=== PATIENT | female | born 1950 | race Caucasian/White ===

== ENCOUNTER 2019-04-12 18:01 | Inpatient (IN) | payer MEDICARE ==
[~2019-04-12 18:01] MED LIST: Iopamidol-370 76% 500 ML 1 ML ONE
[2019-04-12] MEDS ORDERED: Morphine 4 MG/ML VIAL ONE ×2 (18:20→21:51)
[2019-04-12] MEDS ORDERED: Ondansetron PF 4 MG/2 ML Vial ONE (18:20)
--- NOTE | 2019-04-12 18:30 | RAD ---
Chest AP view INDICATION: History of syncope COMPARISON: None FINDINGS: Lungs:There is a 5.6 cm right suprahilar mass which may reflect aneurysmal dilatation of the ascendin g aorta or possibly prominent lymphadenopathy or a hilar malignancy. There is some moderate COPD change. Cardiac silhouette:There is mild cardiomegaly. There are vascular calcifications of the aortic arch. Pulmonary vasculature:Normal Pleural spaces:No pleural effusion or pneumothorax is demonstrated. Upper abdomen:No abnormality seen. Osseous structures: No acute osseous abnormality. There is healed fracture deformity involving the pr oximal left humerus. There is diffuse osteopenia. There is scattered degenerative and osteoarthritic change present. Additional findings:None. IMPRESSION: Right suprahilar mass possibly related to an aneurysm, lymphadenopathy or hilar malignanc y. Recommend CT of the thorax with IV contrast for additional characterization. Moderate COPD change, mild cardiomegaly and healed deformity of the proximal left humerus.
--- NOTE | 2019-04-12 18:33 | RAD ---
XR Hip Rt 2-3 View INDICATION: Fall with right hip pain COMPARISON: None FINDINGS: Bones: There is a varus angulated, moderately displaced right hip intertrochanteric fracture. The fra cture is obliquely oriented and extends through the right inferior intertrochanteric region and exits just proximal to the origin of the lesser trochanter. The proximal fracture fragment is abducte d likely from the gluteal musculature pulling the fragment laterally and superiorly. There is diffuse osteopenia. No additional fractures evident. Hip joint: There is mild right hip osteoarthrosis. SI joints and symphysis pubis: Radiographically normal. Intrapelvic contents: Visualized bowel gas pattern is within normal limits. Surrounding soft tissues: Radiographically normal. IMPRESSION: 1. Moderately displaced right hip intertrochanteric fracture.
--- NOTE | 2019-04-12 18:34 | RAD ---
AP view of the pelvis INDICATION: Fall COMPARISON: None. FINDINGS: Bones: There is a comminuted right hip intertrochanteric fracture. There is diffuse osteopenia. No ad ditional fracture is evident. Hips: There is mild osteoarthrosis of both hips. SI joints and symphysis pubis: Normal appearing. Intrapelvic contents: Within normal limits. IMPRESSION: Comminuted, angulated right hip intertrochanteric fracture.
[2019-04-12 18:47] LABS: #Lymphocytes 0.8 thou/uL (1.20-3.40); #Monocytes 0.8 thou/uL (0.11-0.59); %Basophils 0.1 % (0.0-1.0); %Eosinophils 0.2 % (0.0-10.0); %Lymphocytes 5.9 % (21.0-51.0); %Monocytes 5.9 % (0.0-10.0); %Neutrophils 87.9 % (42.0-75.0); Mean Corpuscular Hemoglobin 35.4 pg (27.0-31.0); Mean Corpuscular Volume 98.3 fL (78.0-98.0); Mean Platelet Volume 6.4 fL (7.4-10.4); Platelet Count 277 thou/uL (130-400); RBC Distribution Width 11.8 % (11.5-14.5); Red Blood Cell (RBC) Count 3.67 mill/uL (4.20-5.40); White Blood Cell (WBC) Count 13.6 thou/uL (4.8-10.8)
[2019-04-12 18:56] LABS: INR-International Normal Ratio 1.2; Prothrombin Time 15.1 SEC (12.0-14.7)
[2019-04-12 18:57] LABS: PTT 28.5 SEC (22.9-36.1)
--- NOTE | 2019-04-12 19:04 | CT ---
CTA OF THE CHEST AND ABDOMEN UTILIZING AN AORTIC DISSECTION PROTOCOL AND 3-D REFORMATTED IMAGING INDICATION: 68-year-old female with possible aneurysm or hilar mass COMPARISON: Chest radiograph dated April 12, 2019 FINDINGS: Aorta: No acute aortic stenosis, occlusion or aneurysmal formation demonstrated. There are mild vascu lar calcifications seen involving the visualized vasculature. Central pulmonary artery: No central pulmonary embolus demonstrated. Additional thorax findings: There is a large 7.8 x 6.4 cm mass involving the right suprahilar region with invasion into the right upper lobe bronchus with circumferential narrowing involving the right mainstem bronchus and SVC. There is suspected mucous debris seen at the level of the noy. There is an enlarged right supraclavicular lymph node measuring 1.2 cm. There are pleural-based metastatic lesions in the right hemithorax. When the largest seen within the posterior right hemithorax measures 3 4 4 cm. An additional lesion is seen within posterior right hemithorax measuring 1.5 cm. There is an enlarged anterior mediastinal lymph node measuring 3.7 x 2.2 cm. There is a small right pleural effusion. Additional abdominal findings: Multiple hepatic metastatic lesions. The largest is seen within left h epatic lobe measuring 5.1 cm. There is a 1.5 cm right adrenal metastatic lesion. There is a 1.1 cm left adrenal metastatic lesion. There are enlarged lymph nodes within the peripancreatic and portacav al regions consistent with malignant lymphadenopathy. When the largest measures 1.8 cm. Osseous structures: There are age-indeterminate compression abnormalities involving T3, T4, T6-L4. Th ere is healed fracture deformity involving the distal sternal body. There is diffuse osteopenia. There is scattered degenerative and osteoarthritic change present. IMPRESSION: 1. Large right suprahilar mass invading the right aspect of the mediastinum extending up into the sup erior right paratracheal region and surrounding the SVC. The lesion also invades the right upper lobe bronchus completely obstructing the right upper lobe bronchus. There is circumferential involvem ent of the lesion with a right mainstem bronchus. There is malignant lymphadenopathy within the right subclavicular region and anterior mediastinum. There is metastatic lesions within the right ple ural space with a small right pleural effusion. There are multiple hepatic metastatic lesions and bilateral adrenal metastatic lesions. There is malignant lymphadenopathy of the upper abdomen. 2. No acute aortic stenosis, occlusion or aneurysmal formation. 3. Numerous age-indeterminate thoracolumbar spinal compression abnormalities.
[2019-04-12 19:05] LABS: D-Dimer Test 4.25 *mcg/mL (0.27-0.43)
[2019-04-12 19:06] LABS: ALT (SGPT) 45 U/L (8-55); AST (SGOT) 39 U/L (5-34); Albumin 3.7 g/dL (3.4-4.8); Alkaline Phosphatase 96 U/L (40-110); Anion Gap 16 mmol/L (10-20); BUN (Urea Nitrogen) 9 mg/dL (9.8-20.1); Bilirubin, Total 0.9 mg/dL (0.2-1.2); CK (CPK) 136 U/L (29-168); Calc. Creatinine Clearance 0 mL/min (70-130); Calcium 8.4 mg/dL (7.8-10.44); Carbon Dioxide 28 mmol/L (23-31); Estimated GFR-MDRD Greater than 90; Globulin 1.9 g/dL (2.4-3.5); Glucose 124 mg/dL (80-115); Lipase 27 U/L (8-78); Potassium 3.1 mmol/L (3.5-5.1); Protein, Total 5.6 g/dL (6.0-8.3)
--- NOTE | 2019-04-12 19:07 | CT ---
CT Brain WO Con: 04/12/2019 6:16 PM CLINICAL HISTORY: Frequent falls. IMAGING TECHNIQUE: Multiple CT images were obtained of the brain without IV contrast. COMPARISON: CT the brain without contrast dated 2019 FINDINGS: Brain: Large left parietal lobe metastatic lesion measuring 2.4 cm a stable appearing. There is a 7 mm left occipital lesion which is similar appearing. The osteolytic lesion involving the right parietal skull with associated scalp soft tissue mass is stable. No midline shift is evident. No acut e intracranial hemorrhage or hydrocephalus is present. Ventricles: Normal. No hydrocephalus. Skull: As above Visualized Paranasal sinuses: Clear. Mastoid air cells:Clear. Extracranial soft tissues:Normal. IMPRESSION: Stable intracranial metastatic disease and right parietal skull metastatic lesion. No acute interval intracranial abnormality demonstrated.
[2019-04-12 19:10] LABS: Chloride 70 mmol/L (98-107); Sodium 111 mmol/L (136-145)
[2019-04-12 20:49] LABS: Bacteria/HPF 3+ HPF (None Seen); Bilirubin Negative (Negative); Blood, Urine Negative (Negative); Clarity Clear (Clear); Glucose, Urine (Dipstick) Normal (Negative); Leukocyte 75 Leu/uL (Negative); Nitrite Negative (Negative); Protein, Urine (Dipstick) 20 mg/dL (Neg-Trace); RBC/HPF 0-3 HPF (0-3); Squamous Epithelial 0-3 HPF (0-3); Urobilinogen Normal mg/dL (Less than 2)
[2019-04-12] MEDS ORDERED: Potassium Chloride 20 MEQ TAB PO SCH (21:15)
[2019-04-12 21:36] LABS: Anion Gap 15 mmol/L (10-20); BUN (Urea Nitrogen) 8 mg/dL (9.8-20.1); Calc. Creatinine Clearance 0 mL/min (70-130); Calcium 7.9 mg/dL (7.8-10.44); Carbon Dioxide 26 mmol/L (23-31); Estimated GFR-MDRD Greater than 90; Glucose 112 mg/dL (80-115)
[2019-04-12 21:41] LABS: Chloride 74 mmol/L (98-107); Sodium 112 mmol/L (136-145)
[2019-04-12] MEDS ORDERED: Potassium Chloride 20 MEQ TAB ONE (21:45)
[2019-04-12] MEDS ORDERED: Furosemide 40 MG/4 ML VIAL ONE (22:11)
[2019-04-12 22:26] LABS: Magnesium 1.7 mg/dL (1.6-2.6)
[2019-04-12] MEDS ORDERED: Magnesium Sulfate 2 GM in Sodium Chloride 0.9% 100 ML IVPB SCH (22:45)
[2019-04-12] MEDS ORDERED: Senokot S 8.6-50 MG TAB PO PRN (22:48)
[2019-04-12] MEDS ORDERED: Calcium Carbonate 500 MG ChewTAB PO PRN (22:48)
--- NOTE | 2019-04-12 22:53 | PDOC.EVN ---
Event Note - Event Note Event Note: Note dictated. Full code. DPOA - spouse
[2019-04-12] MEDS ORDERED: Magnesium 2 GM/50 ML 2 GM in Premix Bag 1 BAG IVPB SCH (23:00)
--- NOTE | 2019-04-12 23:24 | HP ---
PRIMARY CARE PHYSICIAN: Dr. Vilchis. CHIEF COMPLAINT: Fall. HISTORY OF PRESENT ILLNESS: The patient is a 68-year-old female, who presented to the emergency room with above complaints. Please note, the patient is somnolent and not much information is available from the patient. History was obtained from the ER record. No family at the bedside. The patient has been feeling generally weak over the past few days. She had 2 episodes of fall in the last 2 days. She reports that she has a history of brain cancer and has an appointment to see Dr. Pickett next week. No fever or chills reported. She denies any other complaints. Again, she is somnolent and not much information is available from the patient. PAST MEDICAL HISTORY: 1. Glaucoma. 2. Questionable brain cancer. PAST SURGICAL HISTORY: 1. Hysterectomy. 2. Glaucoma. 3. Tonsillectomy. ALLERGIES: THE PATIENT IS ALLERGIC TO CODEINE AND PENICILLIN. CURRENT HOME MEDICATIONS: The patient states that she takes eyedrops for glaucoma and other p.r.n. [id number] medications. Per ER report, her is giving half of her water pill. SOCIAL HISTORY: The patient currently lives at home with her . She does not use a cane or walker to ambulate. She denies any smoking or alcohol. FAMILY HISTORY: Negative for heart disease. REVIEW OF SYSTEMS: Cannot be reliably obtained from the patient due to current cognitive status. PHYSICAL EXAMINATION: VITAL SIGNS: Temperature 98.1, respirations 22, pulse rate of 99, blood pressure of 123/77 with O2 saturations of 92% on room air. GENERAL: A 68-year-old female with altered mentation. HEENT: Head, atraumatic and normocephalic. Sclerae anicteric. Dry mucous membranes. No oral lesion. NECK: Supple. No JVD appreciated. No carotid bruit. LUNGS: Showed diminished air entry at bilateral bases without any rales or rhonchi. HEART: S1, S2 present. Regular rate and rhythm. No rubs or gallops. ABDOMEN: Soft, nontender. Bowel sounds present. EXTREMITIES: There is 3+ edema in bilateral lower extremity. The right leg is shortened and externally rotated. NEUROLOGIC: The patient is somnolent; however, opens eyes and follows commands to some extent. There is no overall rigidity. There is generalized weakness. Examination was essentially nonfocal. PSYCHIATRIC: As discussed above. SKIN: Warm and dry. LYMPH NODES: No palpable lymph nodes in the neck. PERIPHERAL VASCULAR: Radial pulses palpable bilaterally. MUSCULOSKELETAL: No joint swelling tenderness except for swelling at the right hip. LABORATORY FINDINGS: WBC 13.6 with hemoglobin 13, hematocrit 36, platelet count of 277. PT 15.1, INR 1.2, PTT 28.2. D-dimer was 4.25. Chemistry showed sodium 111, potassium 3.1, chloride of 70, bicarb 28, BUN 9, creatinine 0.49, glucose of 124. Lactic acid 1.1. Serum osmolality 231. Troponin was negative. BNP was 28.2. Total bilirubin 0.9 with AST of 39. Urine osmolality was 425. Urine specific gravity was 1.05 with wbc of 11 to 20 and 3+ bacteria. Influenza screen was negative. Urine culture and blood cultures have been sent. Telemetry monitoring by my review showed sinus rhythm. CT aortic dissection protocol showed a large 7.8 x 6.4 cm mass involving the right suprahilar region with invasion into the right upper lobe bronchus with circumferential narrowing involving the right mainstem bronchus and superior vena cava. There was also multiple hepatic metastatic lesion as well as bilateral adrenal metastatic lesion with malignant lymphadenopathy in the upper abdomen. Chest x-ray by my review showed right suprahilar mass. Right hip x-ray showed moderately displaced right hip intertrochanteric fracture. CT scan of the brain without contrast showed stable intracranial metastatic disease and right parietal skull metastatic lesion. IMPRESSION: 1. Generalized weakness with frequent falls, multifactorial. 2. 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 3. Large right suprahilar mass with metastasis involving the liver, adrenal gland, as well as brain. 4. Moderately displaced right hip intertrochanteric fracture. 5. Sepsis due to urinary tract infection. 6. Hypokalemia. 7. Macrocytosis. PLAN: The patient will be monitored in the intermediate care unit. Nephrology, Orthopedic Service, Trauma Service, and Oncology Service will be consulted. We will replace potassium. 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 I discussed with Dr. Goel, who recommended to check electrolytes directly in a.m. We will also add empiric antibiotics for UTI. She is allergic to penicillin. She is currently on Levaquin. Magnesium was 1.7 with phosphorus of 3.0. We will administer 2 g magnesium. We will hold Physical therapy and Occupational therapy for now due to hip fracture. The patient understands the above plan of care. Job ID: [id number] MTDD
[2019-04-12] MEDS ORDERED: Sodium Chloride 0.9% 250 ML IV SCH (23:45)
[2019-04-12] MEDS ORDERED: Albumin 25% 25 GM/100 ML BOT IVPB SCH (23:59)
[2019-04-13 00:05] LABS: Hemoglobin 11.2 g/dL (12.0-16.0)
[2019-04-13 04:16] LABS: #Basophils 0.1 thou/uL (0.0-0.2); #Lymphocytes 0.5 thou/uL (1.20-3.40); #Monocytes 0.8 thou/uL (0.11-0.59); #Neutrophils 11.2 thou/uL (1.40-6.50); %Basophils 0.5 % (0.0-1.0); %Eosinophils 0.1 % (0.0-10.0); %Lymphocytes 4.1 % (21.0-51.0); %Monocytes 6.5 % (0.0-10.0); %Neutrophils 88.8 % (42.0-75.0); Mean Corpuscular HGB CONC 35.2 g/dL (32.0-36.0); Mean Corpuscular Hemoglobin 34.7 pg (27.0-31.0); Mean Corpuscular Volume 98.6 fL (78.0-98.0); Mean Platelet Volume 6.7 fL (7.4-10.4); Platelet Count 230 thou/uL (130-400); RBC Distribution Width 11.7 % (11.5-14.5); Red Blood Cell (RBC) Count 2.88 mill/uL (4.20-5.40); White Blood Cell (WBC) Count 12.6 thou/uL (4.8-10.8)
[2019-04-13 04:37] LABS: Albumin 3.9 g/dL (3.4-4.8); Anion Gap 13 mmol/L (10-20); BUN (Urea Nitrogen) 7 mg/dL (9.8-20.1); BUN/Creatinine Ratio 14.89; Calc. Creatinine Clearance 88 mL/min (70-130); Carbon Dioxide 30 mmol/L (23-31); Chloride 75 mmol/L (98-107); Estimated GFR-MDRD Greater than 90; Glucose 112 mg/dL (80-115); Phosphorus 3.3 mg/dL (2.3-4.7); Potassium 3.7 mmol/L (3.5-5.1)
[2019-04-13 04:39] LABS: Sodium 114 mmol/L (136-145)
--- NOTE | 2019-04-13 07:46 | CON ---
DATE OF CONSULTATION: REQUESTING PHYSICIAN: Missael Aaron MD BRIEF HISTORY OF PRESENT ILLNESS: The patient is a 68-year-old lady, who was examined in the emergency room at [place] following a fall. She reports that over the last few days, she has been feeling generally weak and has had at least two falls over the last two days. On this most recent fall, she sustained trauma to the right hip and as such, presents now to the emergency room for evaluation. The patient also reports that she has recently been diagnosed with a brain tumor and did have an appointment to see Dr. Pickett this coming week for evaluation of this problem. Upon evaluation in the emergency room, x-rays of the right hip and pelvis were obtained. These are remarkable for an intertrochanteric femur fracture with reverse obliquity and displacement. I do not appreciate obvious pathologic fracture evidences. There is no obvious soft tissue lesions or lytic lesions within the bone within the limits of this study. The patient also had a brain CT and chest x-ray as well as chest CT while in the emergency room and these studies have revealed evidence of a parietal lobe tumor, which by radiologist's report is stated to be "stable. The chest x-ray and chest CT shows a large right suprahilar mass invading the mediastinum and right upper lobe bronchus as well as evidence of malignant lymphadenopathy. Given this constellation of problems as well as a sodium of 111, the patient admitted to the Medical Service and orthopedic consultation requested. PAST MEDICAL HISTORY: That is known is that of a recent diagnosis of brain tumor and history of glaucoma. PAST SURGICAL HISTORY: Includes surgery for this glaucoma, as well as tonsillectomy and hysterectomy. MEDICATIONS: The patient states that she does use eyedrops for glaucoma as well as occasional [id number] medications for pain. ALLERGIES: INCLUDE CODEINE AND PENICILLIN. SOCIAL HISTORY: She lives with her in a private home. She does use a walker to ambulate and has had recent falls. She denies smoking or alcohol history. FAMILY HISTORY: Noncontributory for her fracture. REVIEW OF SYSTEMS: Difficult to obtain from the patient due to her current state of cognition. She is arousable, but really is not capable of giving an in-depth review. She does not report any recent fevers or chills. She does report some cough and mild chest pain. PHYSICAL EXAMINATION: VITAL SIGNS: Temperature of 98.1, heart rate of 99, respiratory rate of 22, and blood pressure 123/77. GENERAL: The patient is found to be a 68-year-old lady, who is lying supine with obvious discomfort in the right groin region. She will open her eyes and is able to provide some simple yes or no answers to questions, but otherwise seems somewhat somnolent. HEENT: Atraumatic and normocephalic. HEART: Shows a regular rate and rhythm without murmur. LUNGS: Remarkable for diminished breath sounds, most noticeable on the right side. Chest wall is nontender. ABDOMEN: Flat and with normal bowel sounds. PELVIS: Stable to compression. EXTREMITIES: Remarkable for bilateral upper extremities with no gross deformity. She is able to both actively and passively move at the shoulder, elbow, wrist, and hand without obvious pain or deformity. The left lower extremity also without obvious deformity. The right lower extremity remarkable for pain at the proximal femur and groin region with any type of motion of this right leg. With log-rolling of the thigh, she has pain in the groin. The knee, ankle, and foot do appear atraumatic. She is able to gently wiggle her toes. Denies numbness in the foot. LABORATORY DATA: She was found to have a white count of 13.6, a hematocrit of 36.0, and 277,000 platelets. She has an INR of 1.2. Upon admission, she had a sodium of 111, a potassium of 3.1, and a chloride of 70. IMAGING STUDIES: X-rays; AP pelvis and two view x-ray of her right hip remarkable for a fracture in the intertrochanteric region of the hip with reverse obliquity of this fracture, as well as displacement. ASSESSMENT: A 68-year-old lady with recent diagnosis of brain tumor and now on workup studies consistent with a very large perihilar mass and a right intertrochanteric femur fracture. PLAN: Today, I briefly discussed with the patient and her that from the standpoint of her hip fracture, we would like to proceed with open reduction and internal fixation to stabilize the bone and hopefully provide pain relief. Obviously, there are multiple medical problems that have to be addressed first. At this time, I believe the patient is going to be admitted to the medical service due to this recent diagnosis of brain tumor, the new diagnosis of this perihilar mass, as well as her obvious abnormal labs findings. As soon as they feel the patient is an acceptable candidate for surgery, we will again discuss with her the risks and benefits of stabilization of this fracture. She appears comfortable with our current discussion. Job ID: [id number]
[2019-04-13] MEDS: Saccharomyces boulardii 250 MG CAP PO SCH (08:08)
[2019-04-13] MEDS: Famotidine 20 MG TAB PO SCH ×2 (08:08→21:14)
[2019-04-13] MEDS: Magnesium Oxide 400 MG TAB PO SCH ×2 (08:08→21:14)
--- NOTE | 2019-04-13 08:32 | ULT ---
BILATERAL LOWER EXTREMITY VENOUS DUPLEX ULTRASOUND INCLUDING COLOR AND SPECTRAL DOPPLER IMAGING: HISTORY: Metastatic cancer. Bilateral leg edema. TECHNIQUE: Exam performed from groin to ankle, including the greater saphenous, the common femoral, the superfic ial femoral, the profunda femoral, the popliteal, the trifurcation and the posterior tibial vein victoriano ons. FINDINGS: There is phasic flow at all levels. Normal compressibility and augmentation. No intraluminal thrombus . IMPRESSION: No evidence for deep venous thrombosis. POS: KAM
[2019-04-13] MEDS ORDERED: FLU VACC TS2019-20(65YR UP)/PF 180 MCG/0.5 ML SYRINGE IM ONE (09:00)
[2019-04-13] MEDS ORDERED: traMADol HCl 50 MG TAB PO PRN (12:15)
[2019-04-13] MEDS ORDERED: Morphine 2 MG/ML SYRINGE SLOW IVP SCH (12:15)
[2019-04-13 13:08] LABS: Hemoglobin 10.6 g/dL (12.0-16.0)
[2019-04-13 13:32] LABS: Albumin 3.9 g/dL (3.4-4.8); Anion Gap 15 mmol/L (10-20); BUN (Urea Nitrogen) 6 mg/dL (9.8-20.1); BUN/Creatinine Ratio 13.64; Calc. Creatinine Clearance 92 mL/min (70-130); Calcium 8.3 mg/dL (7.8-10.44); Carbon Dioxide 27 mmol/L (23-31); Chloride 76 mmol/L (98-107); Estimated GFR-MDRD Greater than 90; Glucose 139 mg/dL (80-115); Phosphorus 2.8 mg/dL (2.3-4.7); Potassium 3.6 mmol/L (3.5-5.1)
[2019-04-13 13:37] LABS: Sodium 114 mmol/L (136-145)
--- NOTE | 2019-04-13 14:23 | CON ---
DATE OF CONSULTATION: REASON FOR CONSULTATION: Metastatic cancer. HISTORY OF PRESENT ILLNESS: A 68-year-old female with tobacco and alcohol abuse, brought to the ER by ambulance after a fall. The patient states she was walking and fell down, says she was not dizzy or lightheaded and did not trip, is not sure why she fell. She was found to have a right hip fracture on arrival to the ER. The patient states prior to 2 weeks ago, she felt at her baseline and generally healthy without much complaints and then started feeling weak and had a couple falls, but did not injure herself until this last one. She denies any headaches, vision changes, dizziness, lightheadedness, shortness of breath, cough, or weight loss prior to the last 2 weeks. She now complains of shortness of breath and wheezing within the last few days. Denies any pain other than hip pain. She states she only smoked half pack of cigarettes per day for approximately 20 years and does not inhale; however, her says she smokes a lot more than that for a lot longer. She states she drinks 3 to 4 liquor, gin beverages per day for years. She does not go to doctor routinely, but recently started seeing Dr. Vilchis. She had a consult with Dr. Pickett next week for suspected brain cancer. Upon arrival to the ER, she had a CT aortic dissection protocol, that showed a 7.8 x 6.4 cm mass in the right suprahilar region invading into the right upper lobe bronchus, involving SVC with a large right supraclavicular lymph node, pleural-based metastatic lesions, mediastinal lymphadenopathy, liver metastases, adrenal metastases, and abdominal lymphadenopathy. REVIEW OF SYSTEMS: Ten-point review of systems negative except as per HPI. PAST MEDICAL HISTORY: 1. Glaucoma. 2. Tobacco abuse. 3. Alcohol abuse. PAST SURGICAL HISTORY: 1. Hysterectomy. 2. Tonsillectomy. ALLERGIES: CODEINE AND PENICILLIN. CURRENT MEDICATIONS: Eye drops for glaucoma. SOCIAL HISTORY: Lives with her . Extensive smoking history. 3-4 gin alcoholic beverages per day for years. FAMILY HISTORY: Laryngeal cancer in her sister and liver cancer in her father. PHYSICAL EXAMINATION: VITAL SIGNS: Temperature 97.6, pulse 93, saturating 79% to 94% on 5 L by nasal cannula. GENERAL APPEARANCE: The patient appears acutely ill and cachectic. HEENT: Normocephalic and atraumatic. Dry mucous membranes. NECK: Supple. No palpable lymphadenopathy. LUNGS: Diffuse rhonchorous breath sounds and wheezes over all lung coreas. CARDIAC: S1 and S2. Regular rhythm and rate. ABDOMEN: Soft, nondistended, and nontender. EXTREMITIES: 3+ edema in bilateral lower extremities. Unable to move right leg due to fracture. NEUROLOGIC: Cranial nerves 2 through 12 are grossly intact. The patient is able to move all extremities except the right lower extremity. SKIN: No rash. LABORATORY DATA: White blood cells 12.6, hemoglobin 10, and platelets 230. D-dimer 4.25. Sodium 111 on admission and currently 114, potassium 3.7, BUN 7, and creatinine 0.47. Serum osm is 231. IMAGING DATA: As per HPI. ASSESSMENT AND PLAN: A 68-year-old female with extensive tobacco abuse, presenting with fall and hip fracture, found to have a large likely primary lung mass with brain, liver, adrenal gland, and diffuse lymphadenopathy metastatic disease. 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 If her breathing status can be somewhat stabilized, then I would recommend a liver biopsy via Interventional Radiology to establish a diagnosis, and if small cell is confirmed, then she would be a candidate for inpatient chemotherapy. If biopsy shows any other type of lung cancer, then would likely at that time recommend hospice as the response with those is not very good and the treatment would likely be even more detrimental to her than the disease itself. Small cell carcinoma causes a quick decline in performance status, and even when extremely ill, chemotherapy can have a quick response, which may actually give her clinical improvement. We will await Pulmonary's input and further recommendations are dependent on the clinical course. Regarding brain, if this is small cell lung cancer, then would watch the brain mets on chemo. She is currently not terribly symptomatic from it. Job ID: [id number]
[2019-04-13 15:02] LABS: Actual Bicarbonate (HCO3a) 30.9 mEq/L (22-28); Base Excess (BEa) 4.5 mEq/L (-2.0 to +3.0); Calcium, Ionized 1.12 mmol/L (1.12-1.30); Carboxyhemoglobin (COHb) 1.3 gm% (0.0-3.0); Hemoglobin (Hb) 11.1 g/dL (12.0-16.0); Potassium - ABG Lab 3.44 mmol/L (3.70-5.30); pH, Arterial 7.37 (7.35-7.45)
[2019-04-13 15:17] LABS: O2 Tension (PaO2) 45.2 mmHg (> 80.0); Puncture Site RRA
--- NOTE | 2019-04-13 16:45 | PDOC.HOSPP ---
- Subjective Encounter Date: 04/13/19 Encounter Time: 12:00 Subjective: awake, responds to questions, is lethargic. moves all extremities except right LE, has pain. sob+ - Objective Vital Signs & Weight: Vital Signs (12 hours) Temp Pulse Resp Pulse Ox 04/13/19 15:55 97.6 F 04/13/19 15:10 97 04/13/19 12:45 97 32 H 04/13/19 12:00 92 L 04/13/19 11:31 97.6 F 04/13/19 07:39 98 04/13/19 07:38 97.1 F L 04/13/19 07:31 98 Weight Weight 106 lb 8 oz Most Recent Monitor Data Heart Rate from ECG 92 NIBP 108/68 NIBP BP-Mean 81 Respiration from ECG 15 SpO2 93 I&O: 04/12/19 04/13/19 04/14/19 06:59 06:59 06:59 Intake Total 1250 Output Total 950 Balance 300 Result Diagrams: 04/13/19 12:51 04/13/19 12:51 Hospitalist ROS - Medication Medications: Active Medications Generic Name Dose Route Start Last Admin Trade Name Freq PRN Reason Stop Dose Admin Albuterol/Ipratropium 3 ml 04/13/19 13:00 04/13/19 13:54 Duoneb NEB Not Given E5AM-BK DAGOBERTO Famotidine 20 mg 04/13/19 09:00 04/13/19 08:08 Pepcid PO 20 mg BID DAGOBERTO Administration Magnesium Oxide 400 mg 04/13/19 09:00 04/13/19 08:08 Magnesium Oxide PO 400 mg BID DAGOBERTO Administration Saccharomyces Boulardii 250 mg 04/13/19 09:00 04/13/19 08:08 Florastor PO 250 mg DAILY DAGOBERTO Administration - Exam General Appearance: ill appearing Eye: PERRL, anicteric sclera ENT: no oropharyngeal lesions, dry oral mucosa Neck: supple, no JVD Heart: RRR, no murmur Respiratory: rhonchi, wheezes Gastrointestinal: soft, non-tender, non-distended, normal bowel sounds Extremities: no edema Extremities - other findings: right lower extre is shortened and in ext rotation with flexion at knees Neurological: cranial nerve grossly intact, no focal deficits Hosp A/P (1) Metastatic cancer Code(s): C79.9 - SECONDARY MALIGNANT NEOPLASM OF UNSPECIFIED SITE Status: Acute (2) SIADH (syndrome of inappropriate ADH production) Status: Acute (3) Right femoral fracture Code(s): S72.91XA - UNSP FRACTURE OF RIGHT FEMUR, INIT FOR CLOS FX Status: Acute Qualifiers: Encounter type: subsequent encounter Femur location: intertrochanteric Fracture type: closed Fracture alignment: displaced (4) Lung mass Code(s): R91.8 - OTHER NONSPECIFIC ABNORMAL FINDING OF LUNG FIELD Status: Acute (5) multiple liver mets Status: Acute (6) Chronic anemia Code(s): D64.9 - ANEMIA, UNSPECIFIED Status: Chronic (7) Tobacco abuse Code(s): Z72.0 - TOBACCO USE Status: Chronic (8) Alcohol use disorder, mild, abuse Code(s): F10.10 - ALCOHOL ABUSE, UNCOMPLICATED Status: Chronic (9) FTT (failure to thrive) in adult Status: Acute - Plan is on fluid restriction for siadh, d/w , suggest hypertonic saline if she is planned to go to OR for hip fixation poor prognosis with multiple mets from likely lung primary to occipital lobe, parietal skull, multiple large liver mets, adrenal glands and abd lymph nodes as well. nebs, steroids to perk her up a bit with hypoxia now morphine prn for hip fracture d/w extensively, pt is DNAR, he is aware of poor prognosis, their children will be arriving to see her. is at risk of resp failure and ending up on vent if she goes to OR, suggest spinal if one can be done with acceptable high risk alba and post op to alleviate severe pain. d/w , he will talk to and anesthesia. Palliative care consultation. If patient and family want to proceed with biopsy, suggest parietal bone/liver under local anesthesia.
[2019-04-13] MEDS ORDERED: Potassium Chloride 20 MEQ TAB PO SCH (17:15)
[2019-04-13] MEDS: Sodium Chloride 3% 100 ML IVPB SCH ×2 (18:34→18:35)
[2019-04-13] MEDS: methylPREDNISolone Sod Succ 40 MG VIAL IVP SCH ×2 (18:35→23:13)
--- NOTE | 2019-04-13 19:18 | CON ---
DATE OF CONSULTATION: 04/13/2019 SERVICE: Pulmonary Medicine. REASON FOR CONSULTATION: ICU patient. HISTORY OF PRESENT ILLNESS: The patient is a 68-year-old white female with past medical history significant for a scalp lesion that has been investigated in the outpatient setting. Ultimately, over the last 2 to 3 weeks, she has had a very pronounced and rapid decline in function. She is having increasing episodes of fall. On one of these falls, she ended up fracturing her hip. She was subsequently brought to the emergency department. A CT of the head demonstrated masses. CT of the chest demonstrated a mass. There is some significant mediastinal lymphadenopathy. She also had scalp growth. She was discovered to be profoundly hypoxemic. She was started on oxygen, which was escalated through the day to Ventimask, non-rebreather and subsequent BiPAP. She is currently on 100% FiO2. She is somnolent, but is alert. She denies any current chest discomfort, nausea, vomiting, fevers, or chills. Her pain is under good control. PAST MEDICAL HISTORY: 1. Glaucoma. 2. Tobacco abuse. 3. Widely metastatic process. PAST SURGICAL HISTORY: 1. Hysterectomy. 2. Tonsillectomy. ALLERGIES: CODEINE, PENICILLIN. MEDICATIONS: List of her inpatient medications was reviewed. No specific updates were made at this time. SOCIAL HISTORY: She was fully independent up until 2 weeks ago. This was perhaps in a quite robust fashion. There are no reports of significant alcohol or illicit drug use. She is a smoker. FAMILY HISTORY: Noncontributory. REVIEW OF SYSTEMS: This cannot be obtained because the patient is somnolent. PHYSICAL EXAMINATION: VITAL SIGNS: Afebrile, pulse 92, blood pressure 108/68, respirations 15, and saturation 93% currently on 100% FiO2 with a PEEP of 7. GENERAL: The patient is somnolent, but does wake up and follow commands and understands, nods yes and no appropriately. HEENT: Normocephalic and atraumatic. Sclerae white. Conjunctivae pink. Oral mucosa is dry. There are no lesions. LUNGS: Good air entry on the left. Decreased air entry on the right. No prolonged expiratory phase or crackles are appreciated. HEART: Normal rate. Regular. ABDOMEN: Soft, nontender, and nondistended. Bowel sounds are positive. MUSCULOSKELETAL: No cyanosis or clubbing. There is diffuse 2+ pitting throughout bilateral lower extremities. LABORATORY DATA: WBC 12.6, hemoglobin 10.6, and platelets 230,000. INR 1.1. A pH 7.37, pCO2 of 55, pO2 of 45. Sodium 114 and gently uptrending, potassium 3.6. Basic metabolic profile is otherwise unremarkable. Phosphorus 2.8. Albumin 3.9 , vitamin B12 and folate are unremarkable. Cortisol 29. Liver function studies were unremarkable on presentation. Urinalysis is negative. Influenza A and B, blood culture x2, and urine culture are negative to date. IMAGIN. Hip x-ray demonstrates a right hip intertrochanteric fracture. This is moderately displaced. 2. CT of the brain demonstrates multiple metastatic lesions, the largest measuring 2.[address] dissection protocol demonstrates widespread lymphadenopathy as well as a pulmonary mass. Multiple liver lesions are also noted. Bilateral small pleural effusions are present with interstitial fullness throughout bilateral lung coreas. 4. Ultrasound of the bilateral lower extremities demonstrates no evidence for DVT. ASSESSMENT: 1. Acute hypoxic respiratory failure. 2. Hyponatremia, possibly as a result of syndrome of inappropriate antidiuretic hormone secretion. 3. Widely metastatic process, including pulmonary mass, mediastinal lymphadenopathy, liver lesions, brain lesions, and scalp lesion. 4. Mechanical fall secondary to medical issues resulting in intertrochanteric hip fracture. DISCUSSION AND PLAN: I will replace the potassium. Surgical consultation will be placed. She is on so much oxygen at this point that I cannot remove the BiPAP. If we intubated her for bronchoscopy, we will never get her extubated. Liver lesion is not feasible currently because she cannot leave the IMCU. There is a scalp lesion here. Surgical consultation will be placed to get a biopsy at bedside if possible. Hopefully, rapid on-site pathology can be available, so that we can expedite a workup and initiate chemotherapy. If this is small cell, she may be exquisitely sensitive to it and have a robust recovery for 6 months to 2 years. That being said, she is critically ill at this point, remains a very firm DNAR. As such, intubation is not an option electively currently. 70 minutes have been devoted to this patient in various activities. I personally reviewed all imaging studies and laboratory data noted within this document. For fifty percent of this time, I was interacting with the patient at the bedside or coordinating care with the care team. For the remainder of the time I was immediately available to the patient in the hospital unit. Job ID: [id number] MTDD
[2019-04-13] MEDS ORDERED: Potassium Chloride 40 MEQ in Sodium Chloride 0.9% 250 ML 250 ML IVPB SCH (19:45)
[2019-04-13] MEDS: metroNIDAZOLE 500 MG in Premix Bag 1 BAG IVPB SCH (19:50)
[2019-04-13 21:25] LABS: Anion Gap 12 mmol/L (10-20); BUN (Urea Nitrogen) 5 mg/dL (9.8-20.1); Calc. Creatinine Clearance 92 mL/min (70-130); Calcium 8.1 mg/dL (7.8-10.44); Carbon Dioxide 32 mmol/L (23-31); Chloride 79 mmol/L (98-107); Estimated GFR-MDRD Greater than 90; Glucose 127 mg/dL (80-115); Potassium 3.4 mmol/L (3.5-5.1); Sodium 120 mmol/L (136-145)
[2019-04-13] MEDS: Acetaminophen 325 MG TAB PO PRN (23:10)
[2019-04-13] MEDS: Melatonin 3 MG TAB PO PRN (23:10)
[2019-04-14 01:28] LABS: Albumin 3.5 g/dL (3.4-4.8); Anion Gap 13 mmol/L (10-20); BUN (Urea Nitrogen) 6 mg/dL (9.8-20.1); BUN/Creatinine Ratio 13.95; Calc. Creatinine Clearance 94 mL/min (70-130); Calcium 8.4 mg/dL (7.8-10.44); Carbon Dioxide 29 mmol/L (23-31); Chloride 81 mmol/L (98-107); Estimated GFR-MDRD Greater than 90; Glucose 155 mg/dL (80-115); Phosphorus 2.7 mg/dL (2.3-4.7); Potassium 4.6 mmol/L (3.5-5.1)
[2019-04-14 01:34] LABS: Sodium 118 mmol/L (136-145)
[2019-04-14] MEDS: metroNIDAZOLE 500 MG in Premix Bag 1 BAG IVPB SCH ×3 (03:16→18:23)
[2019-04-14 04:17] LABS: #Lymphocytes 0.5 thou/uL (1.20-3.40); #Monocytes 0.6 thou/uL (0.11-0.59); #Neutrophils 15.3 thou/uL (1.40-6.50); %Monocytes 3.5 % (0.0-10.0); %Neutrophils 93.4 % (42.0-75.0); Hemoglobin 10.1 g/dL (12.0-16.0); Mean Corpuscular HGB CONC 34.3 g/dL (32.0-36.0); Mean Corpuscular Hemoglobin 34.2 pg (27.0-31.0); Mean Corpuscular Volume 99.6 fL (78.0-98.0); Mean Platelet Volume 7.1 fL (7.4-10.4); Platelet Count 226 thou/uL (130-400); RBC Distribution Width 11.7 % (11.5-14.5); Red Blood Cell (RBC) Count 2.96 mill/uL (4.20-5.40); White Blood Cell (WBC) Count 16.3 thou/uL (4.8-10.8)
[2019-04-14] MEDS: methylPREDNISolone Sod Succ 40 MG VIAL IVP SCH ×4 (06:11→21:31)
[2019-04-14 06:29] LABS: Anion Gap 11 mmol/L (10-20); BUN (Urea Nitrogen) 5 mg/dL (9.8-20.1); Calc. Creatinine Clearance 91 mL/min (70-130); Calcium 8.3 mg/dL (7.8-10.44); Carbon Dioxide 27 mmol/L (23-31); Chloride 82 mmol/L (98-107); Estimated GFR-MDRD Greater than 90; Glucose 141 mg/dL (80-115); Potassium 4.3 mmol/L (3.5-5.1)
[2019-04-14 06:36] LABS: Sodium 116 mmol/L (136-145)
--- NOTE | 2019-04-14 07:18 | CON ---
DATE OF CONSULTATION: 04/12/2019 SERVICE: Nephrology. REASON FOR CONSULTATION: Hyponatremia. REQUESTING PHYSICIAN: Dr. Abdi Alarcon. HISTORY OF PRESENT ILLNESS: 68-year-old female, brought in due to right hip pain sustained after a fall earlier today. The patient reportedly has been falling in the last several days. Also reported to have generalized weakness. The patient complains also of right-sided occipital pain and headache. She also admitted to chronic cough and wheezing. She also recently was found to have brain cancer for which she is to see a physician for that next week. In the ER, the patient was found to have hyponatremia with sodium of 111, necessitating Nephrology consult. She also was found to have right hilar mass concerning for lymphadenopathy or aortic aneurysm hence was further evaluated with CT aortic dissection protocol, which showed lung mass with metastasis to the liver. The patient also was evaluated with CT scan of the head, which showed an intracranial metastasis as well as right occipital scalp metastasis. The patient denied nausea, vomiting, abdominal pain, dysuria, but admitted to bilateral leg edema which has been ongoing for several weeks. The patient denied dizziness prior to having falls, but reported that most of the time she is weak and falls on trying to ambulate. She also denied fever and chills. PAST MEDICAL HISTORY: 1. Glaucoma. 2. Chronic tobacco abuse. 3. Chronic daily alcohol use. 4. Recent diagnosis of brain cancer. PAST SURGICAL HISTORY: 1. section. 2. Partial hysterectomy. 3. Tonsillectomy. FAMILY HISTORY: Significant for liver cancer in father. Both parents are late. SOCIAL HISTORY: The patient lives with spouse. She admitted to daily alcohol use with last use being earlier today. She reportedly takes about 3-4 drinks every day. She also smokes about half a pack daily for more than 40 years. Denied recreational drug use. ALLERGIES: PENICILLIN, CODEINE. HOME MEDICATION: Eye drop. REVIEW OF SYSTEMS: 12-point review of system performed was unremarkable other than pertinent positives and negatives included in the history of present illness. PHYSICAL EXAMINATION: VITAL SIGNS: Temperature 98.1, pulse 99, respiratory rate 22, SpO2 of 92% on room air, blood pressure is 123/77. GENERAL: Elderly-looking female, in mild painful distress. Afebrile. Anicteric. Acyanotic. HEENT: Normocephalic, atraumatic. Right occipital; small soft mass noted. Oral mucosa is moist. NECK: Supple with no JVD or lymphadenopathy. CARDIOVASCULAR: Regular rhythm and rate with normal. heart sounds one and two. RESPIRATORY: Fair air entry bilaterally with some transmitted breath sounds and few scattered rhonchi. Work of breathing is not increased. GI: Full, soft, nontender, nondistended with normal bowel sounds. EXTREMITIES: Right lower extremity is laterally rotated. Moderate bilateral leg edema noted as well. Mild shortening of the right lower extremity also is noted. STAFF NURSE ICU RESOURCE TEAM: The patient is drowsy. She is otherwise conversational and oriented to person and place. Mild memory lapse is noted. DIAGNOSTIC DATA: CBC showed WBC count of 13.6, hemoglobin of 13.0, MCV of 98.3, and platelet of 277. Coagulation panel showed PT 15.1, INR 1.2, and PTT 28.5, and D-dimer 4.25. CMP showed sodium 111, potassium 3.1, chloride 70, CO2 of 28, BUN 9, creatinine 0.49, glucose 124, calcium 8.4, total bilirubin 0.9, AST 39, ALT 45, alkaline phosphatase 96, total protein 5.6, albumin 3.7, globulin 1.9. Lipase is 27. Initial cardiac markers showed CK 136, troponin 0.011, and BNP 28.2. Urinalysis showed yellow clear urine with pH of 6.0, specific gravity of 1.045, urine protein of 20, normal urine glucose, ketones 40, and negative blood, nitrite, and bilirubin. Leukocyte esterase is 75. Microscopy showed 0 to 3 rbc's and 11 to 20 wbc's with 3+ bacteria. Chest x-ray showed right suprahilar mass, possibly related to an aneurysm, lymphadenopathy, or hilar malignancy. Hip x-ray showed moderate displaced right hip intertrochanteric fracture. Pelvic x-ray also showed comminuted, angulated right hip intertrochanteric fracture. CT scan of the brain compared to prior CT of April 10, 2019 showed stable intracranial metastatic disease as well as right parietal skull metastatic lesion with no acute interval intracranial abnormality demonstrated. CT aortic dissection protocol showed large right suprahilar mass invading the right aspect of the mediastinum, extending up into the superior right paratracheal region and surrounding the SVC. The lesion also invades the right upper lobe bronchus completely obstructing the right upper lobe bronchus. There is circumferential involvement of the lesion with the right mainstem bronchus and there is malignant lymphadenopathy within the right subclavicular region and anterior mediastinum. There is also metastatic lesion within the right pleural space with a small right pleural effusion. There are multiple hepatic metastatic lesions as well as bilateral adrenal metastatic lesions. There is malignant lymphadenopathy of the upper abdomen. No acute aortic stenosis, occlusion, aneurysmal formation was noted. Numerous age indeterminate thoracolumbar spinal compression abnormalities noted. ASSESSMENT: 1. Severe hyponatremia: Most likely due to syndrome of inappropriate antidiuretic hormone secretion related to metastatic disease. Hypokalemia may also be contributory to the hyponatremia. 2. Reported frequent falls, may be related to this severe hyponatremia. However, the patient had metastatic lesion, which may also be contributory or responsible. 3. Hypokalemia. 4. Metastatic right suprahilar mass, most likely metastatic lung disease with metastasis to the liver and brain. 5. Brain metastatic lesion. 6. Liver masses. 7. Bilateral leg edema: Most likely due to lymphadenopathy of the abdomen with decreased in fatigue and venous drainage. Diastolic heart failure is also a concern. 8. Chronic alcohol use with high risk for withdrawal. 9. Chronic tobacco abuse. 10. Chronic cough. 11. Presumed obstructive pneumonia. 12. Presumed chronic obstructive pulmonary disease. PLAN: 1. We will replete serum potassium with potassium chloride. 2. We will get serum magnesium and replete if indicated. 3. The patient already received 1 L of normal saline in the ER. Given bilateral leg edema and features suggestive of fluid overload, we will give 40 mg of Lasix. We will not be giving any further IV fluid for now. We will recheck renal function in the morning. 4. Analgesic as per primary attending for the right intertrochanteric fracture. 5. Further treatment to follow depending on hospital course. Many thanks for involving us in the care of this patient. We will follow along with you. Job ID: [id number]
--- NOTE | 2019-04-14 07:29 | PRG ---
DATE OF SERVICE: 04/13/2019 SERVICE: Nephrology. SUBJECTIVE: A 68-year-old female, seen in followup for severe hyponatremia. The patient was brought in after a fall, during which she sustained trauma to the right hip and was found to have comminuted fracture of right hip. She was also found to have cough and bilateral leg edema as well as metastatic cancer, thought to be primarily of the lungs. The patient is sleepy, but wakes up with stimulation. She complains of pain in the right hip. She has been getting some pain medication. OBJECTIVE: VITAL SIGNS: Temperature 97.6, pulse 92, respiratory rate 20, SpO2 of 96 on oxygen supplementation, blood pressure is 116/74. GENERAL: Chronically ill-looking female, in no obvious distress. The patient is sleepy, but easily arousable. HEENT: Atraumatic. Face is symmetrical. Right parieto-occipital soft tissue mass noted. NECK: No JVD. CARDIOVASCULAR: Regular rhythm and rate with normal heart sounds. RESPIRATORY: Fair air entry bilateral with coarse transmitted breath sounds and questionable crackles. No obvious rhonchi or use of accessory muscles was appreciated. GI: Full, soft, nontender, nondistended with normal bowel sounds. EXTREMITIES: Right lower extremity is shortened and laterally rotated. Bilateral leg edema noted. SENIOR ASSISTANT MANAGER: The patient is sleeping, but easily arousable. Oriented x3. Mental status seems appropriate. Moves all extremities except right lower extremity, which is limited by pain. DIAGNOSTIC DATA: CBC showed WBC count of 12.6, hemoglobin of 10.0, MCV of 98.6, platelets of 230. Renal function panel showed sodium 114, potassium 3.7, chloride 75, CO2 of 30, BUN 7, creatinine 0.47, glucose 112, calcium 8.0, phosphorus 3.3, albumin 3.9. Serum osmolality is 231, while urine osmolality is 425. ASSESSMENT: 1. Severe hyponatremia: This is deemed to be symptomatic, given history of frequent falls. However, brain metastasis maybe the cause of the frequent falls. Mental status overall seems to be stable. The drowsiness most likely is related to narcotic analgesic. However, contribution from the hyponatremia could not be ruled out. 2. Metastatic lung cancer with metastasis to the brain, liver, and adrenals. 3. Bilateral leg edema due to lymphadenopathy and venous occlusion. PLAN: 1. We will start free water restriction to 1 L per 24 hours. 2. Given that the patient is neurologically stable, we will not be aggressively increasing serum sodium. However, we will recheck BMP this afternoon and depending on the level, we will consider hypertonic solution. 3. Right hip fracture. Management as per Orthopedics. 4. Metastatic lung cancer. Evaluation and treatment as per Pulmonology and Oncology. Further treatment to follow depending on hospital course. ADDENDUM: Repeat BMP showed serum sodium of 114. We will give 100 mL of hypertonic solution and continue fluid restriction to 1 L per 24 hours. We will also continue to monitor serum sodium. Job ID: [id number]
[2019-04-14] MEDS ORDERED: Tolvaptan 15 MG TAB PO SCH (09:30)
[2019-04-14] MEDS: Famotidine 20 MG TAB PO SCH ×2 (10:26→21:32)
[2019-04-14] MEDS: Saccharomyces boulardii 250 MG CAP PO SCH (10:27)
[2019-04-14] MEDS: Magnesium Oxide 400 MG TAB PO SCH ×2 (10:27→21:32)
[2019-04-14] MEDS: Acetaminophen 325 MG TAB PO PRN (10:29)
--- NOTE | 2019-04-14 11:45 | PRG ---
DATE OF SERVICE: 04/14/2019 SERVICE: Nephrology. SUBJECTIVE: A 68-year-old, admitted with right comminuted hip fracture. The patient also was found to have metastatic lung cancer with metastasis to the brain and liver as well as adrenal. Nephrology is following the patient for severe hyponatremia. The patient is more awake today and conversational. She reports feeling a lot better. OBJECTIVE: VITAL SIGNS: Temperature 96.6, pulse 91, respiratory rate 22, SpO2 of 93% on 3 L nasal cannula, blood pressure is 125/78. GENERAL: Female, in no obvious distress. Afebrile, acyanotic. HEENT: Normocephalic and atraumatic. Oral mucosa is moist. NECK: Supple with no JVD. CARDIOVASCULAR: Regular rhythm and rate with normal heart sounds one and two. RESPIRATORY: Coarse crackles and transmitted breath sounds heard in all lung zones. Work of breathing however is not increased. GI: Full, soft, nondistended with normal bowel sounds. UROGENITAL: Chavez catheter is in place. EXTREMITIES: Right lower extremity is held in lateral rotation and mild flexion at the knee. The right thigh edema and tenderness noted as well as bilateral leg edema. BARREL DRAINER: Conscious, alert and oriented x3 with appropriate mental status. Cranial nerves 2 through 12 are grossly intact. DIAGNOSTIC DATA: CBC showed WBC count of 16.3, hemoglobin of 10.1, platelet of 226. Chemistry showed sodium 116, potassium 4.3, chloride 82, CO2 of 27, BUN 5, creatinine 0.45, glucose 141, calcium 8.3. Note that serum sodium increased to a peak of 120 after hypertonic solution and progressively trended downwards to a rosalinda of 116 currently. ASSESSMENT: 1. Severe hyponatremia: The patient reported frequent fall and generalized weakness. This was thought to be due to syndrome of inappropriate antidiuretic hormone secretion related to metastatic cancer. The patient is on fluid restriction, but there is no significant increase in serum sodium. There seems to be some component of poor solute intake as well as serum sodium increased to 120 plus from 114 after 100 mL of hypertonic solution. 2. Hypokalemia: Repleted. 3. Metastatic lung cancer with mets to the brain, scalp, liver, and adrenal. 4. Chronic bilateral leg edema. 5. Comminuted right hip fracture: Treatment as per Orthopedic Surgery. 6. Chronic obstructive pulmonary disease with acute exacerbation. 7. Acute on chronic respiratory failure due to lung cancer with obstructive pneumonia and chronic obstructive pulmonary disease exacerbation. PLAN: 1. We will start the patient on low-dose Samsca 15 mg daily given no significant improvement with fluid restriction alone. 2. We will monitor oral intake as well as output. 3. We will relax fluid restriction a little bit to allow 2 L of fluid per 24 hours while on Samsca. 4. Further treatment to follow depending on hospital course. Job ID: [id number]
--- NOTE | 2019-04-14 12:48 | PRG ---
DATE OF SERVICE: 04/14/2019 SERVICE: Pulmonary Medicine. INTERVAL HISTORY: I spoke with multiple different services today. Both General Surgery and Interventional Radiology did not want to do a biopsy of this superficial lesion. As such, I spoke with Neurosurgery. They are willing and able to do the thing that we need done. I am very grateful for their service. At this point, she remains on very high amounts of oxygen. She indicates that she is breathing fairly comfortably. She has no complaints of nausea, vomiting, or diarrhea otherwise. This morning, she was actually transitioned on to 4 L nasal cannula, and her saturations are better than I would have expected. Overnight, BiPAP must have been effective at improving her oxygenation status. PHYSICAL EXAMINATION: VITAL SIGNS: Afebrile, pulse 91, blood pressure 125/78, respirations 22, and saturation 89% on 4 L nasal cannula. GENERAL: The patient is awake and alert, in no apparent distress. LUNGS: Wonderful air entry on the left. The right has crackling present. No prolonged expiratory phase or wheezing. HEART: Normal rate, regular. ABDOMEN: Soft, nontender, nondistended. Bowel sounds are positive. MUSCULOSKELETAL: No cyanosis or clubbing. No pitting in the bilateral lower extremities. NEUROLOGIC: Grossly nonfocal. LABORATORY DATA: WBC 16.3, hemoglobin 10.1, and platelets 226,000. INR 1.2. Sodium is once again downtrending. Basic metabolic profile is otherwise unremarkable. Urinalysis is negative. Blood cultures x2, influenza, and urine culture negative to date. ASSESSMENT: 1. Acute hypoxic respiratory failure. 2. Hyponatremia, likely secondary to SIADH. 3. Widely metastatic process, including pulmonary mass, mediastinal lymphadenopathy, liver lesions, brain lesions, and scalp lesion. 4. Mechanical fall secondary to medical issues resulting in intertrochanteric hip fracture. DISCUSSION AND PLAN: The patient is doing fine from respiratory standpoint. We are going to try to do a biopsy of the superficial lesion today. Hopefully, this will provide us with an answer. I am grateful that her oxygen status is temporarily improved and that she is tolerating a BiPAP break. If this is a small cell lung cancer, there is a possibility the patient could have a very robust response to chemotherapy, which could provide her with meaningful time with her family over the next year to two. Pulmonary will continue to follow. Job ID: [id number] [facility]
[2019-04-14] MEDS ORDERED: Lidocaine 1% w/Epinephrine 1:100K 20 ML VIAL ONE (14:02)
--- NOTE | 2019-04-14 14:51 | CON ---
DATE OF CONSULTATION: Ms. Slater is a 68-year-old woman with an unfortunate diagnosis of metastatic lung cancer to the brain as well as to the soft tissues and scalp. There is a question of this represent small cell carcinoma and for this purpose, Neurosurgery was consulted for possible scalp lesion biopsy. There is bony erosion of the calvarium beneath this lesion almost entirely. When sitting at her bedside, she records it for 90% oxygen on BiPAP to remain proper blood oxygenation level, although other than that she appears to be neurologically intact. I discussed the recommended procedure being right parietal biopsy with the patient as well as her granddaughter in the room. The patient ultimately agreed and we will proceed with biopsy. Job ID: [id number]
[2019-04-14 15:29] LABS: Anion Gap 11 mmol/L (10-20); BUN (Urea Nitrogen) 9 mg/dL (9.8-20.1); Calc. Creatinine Clearance 72 mL/min (70-130); Calcium 8.9 mg/dL (7.8-10.44); Carbon Dioxide 33 mmol/L (23-31); Chloride 82 mmol/L (98-107); Estimated GFR-MDRD Greater than 90; Glucose 228 mg/dL (80-115); Potassium 4.2 mmol/L (3.5-5.1); Sodium 122 mmol/L (136-145)
--- NOTE | 2019-04-14 16:50 | PDOC.HOSPP ---
- Subjective Encounter Date: 04/14/19 Encounter Time: 13:00 Subjective: awake, has sob, pain in right leg is slightly better grand daughter at bedside - Objective Vital Signs & Weight: Vital Signs (12 hours) Temp Pulse Resp Pulse Ox 04/14/19 15:26 96.8 F L 04/14/19 11:40 96.0 F L 04/14/19 08:00 96.6 F L 93 L 04/14/19 07:06 91 22 H 89 L Weight Weight 107 lb 12.8 oz Most Recent Monitor Data Heart Rate from ECG 105 NIBP 117/68 NIBP BP-Mean 84 Respiration from ECG 24 SpO2 98 I&O: 04/13/19 04/14/19 04/15/19 06:59 06:59 06:59 Intake Total 1250 940 Output Total 950 1075 Balance 300 -135 Result Diagrams: 04/14/19 03:36 04/14/19 14:53 Hospitalist ROS - Medication Medications: Active Medications Generic Name Dose Route Start Last Admin Trade Name Freq PRN Reason Stop Dose Admin Acetaminophen 650 mg 04/12/19 22:48 04/14/19 10:29 Tylenol PO 650 mg Q4H PRN Administration Headache/Fever/Mild Pain (1-3) Albuterol/Ipratropium 3 ml 04/13/19 13:00 04/14/19 15:29 Duoneb NEB Not Given [id number] DAGOBERTO Famotidine 20 mg 04/13/19 09:00 04/14/19 10:26 Pepcid PO 20 mg BID DAGOBERTO Administration Fentanyl 25 mcg 04/14/19 11:00 04/14/19 11:59 Duragesic TD 25 mcg Q3D DAGOBERTO Administration Levofloxacin 500 mg/ Device 100 mls @ 100 mls/hr 04/13/19 22:00 04/13/19 22: 34 IVPB 100 mls Q24HR DAGOBERTO Administration Metronidazole 500 mg/ Device 100 mls @ 100 mls/hr 04/13/19 19:00 04/14/19 10: 41 IVPB 100 mls 0300,1100,1900 DAGOBERTO Administration Magnesium Oxide 400 mg 04/13/19 09:00 04/14/19 10:27 Magnesium Oxide PO 400 mg BID DAGOBERTO Administration Melatonin 6 mg 04/13/19 22:47 04/13/19 23:10 Melatonin PO 6 mg HSPRN PRN Administration Insomnia Methylprednisolone Sodium Succinate 20 mg 04/14/19 14:00 04/14/19 16:32 Solu-Medrol IVP 20 mg Q8HR DAGOBERTO Administration Saccharomyces Candii 250 mg 04/13/19 09:00 04/14/19 10:27 Florastor PO 250 mg DAILY DAGOBERTO Administration - Exam General Appearance: awake alert, ill appearing Eye: PERRL, anicteric sclera ENT: no oropharyngeal lesions, dry oral mucosa Neck: supple, no JVD Heart: RRR, no murmur Respiratory: rhonchi, tachypneic, wheezes Gastrointestinal: soft, non-tender, non-distended, normal bowel sounds Extremities: no edema Extremities - other findings: right LE is externally rotated and shortened Neurological: cranial nerve grossly intact, no focal deficits Hosp A/P (1) Metastatic cancer Code(s): C79.9 - SECONDARY MALIGNANT NEOPLASM OF UNSPECIFIED SITE Status: Acute (2) SIADH (syndrome of inappropriate ADH production) Status: Acute (3) Right femoral fracture Code(s): S72.91XA - UNSP FRACTURE OF RIGHT FEMUR, INIT FOR CLOS FX Status: Acute Qualifiers: Encounter type: subsequent encounter Femur location: intertrochanteric Fracture type: closed Fracture alignment: displaced (4) Lung mass Code(s): R91.8 - OTHER NONSPECIFIC ABNORMAL FINDING OF LUNG FIELD Status: Acute (5) multiple liver mets Status: Acute (6) Chronic anemia Code(s): D64.9 - ANEMIA, UNSPECIFIED Status: Chronic (7) Tobacco abuse Code(s): Z72.0 - TOBACCO USE Status: Chronic (8) Alcohol use disorder, mild, abuse Code(s): F10.10 - ALCOHOL ABUSE, UNCOMPLICATED Status: Chronic (9) FTT (failure to thrive) in adult Status: Acute - Plan is on fluid restriction and tolvaptan for siadh, sodium slightly better at 122. poor prognosis with multiple mets from likely lung primary to occipital lobe, parietal skull, multiple large liver mets, adrenal glands and abd lymph nodes as well. nebs, steroids to perk her up a bit with hypoxia now low dose fentanyl tts for hip fracture and cancer d/w extensively, pt is DNAR, he is aware of poor prognosis, their children will be arriving to see her (04/13/2019). Palliative care consultation. NSX has been consulted for parietal bone lesion biopsy for establishing diagnosis.
[2019-04-14 21:24] LABS: Anion Gap 10 mmol/L (10-20); BUN (Urea Nitrogen) 10 mg/dL (9.8-20.1); Calc. Creatinine Clearance 80 mL/min (70-130); Calcium 9.2 mg/dL (7.8-10.44); Carbon Dioxide 36 mmol/L (23-31); Chloride 86 mmol/L (98-107); Estimated GFR-MDRD Greater than 90; Glucose 202 mg/dL (80-115); Potassium 4.1 mmol/L (3.5-5.1); Sodium 128 mmol/L (136-145)
[2019-04-14] MEDS: Nicotine 7 MG PATCH TD SCH (21:31)
[2019-04-14] MEDS: Melatonin 3 MG TAB PO PRN (21:32)
[2019-04-15] MEDS ORDERED: diphenhydrAMINE 25 MG CAP PO SCH (00:30)
[2019-04-15 04:18] LABS: Anion Gap 8 mmol/L (10-20); BUN (Urea Nitrogen) 8 mg/dL (9.8-20.1); Calc. Creatinine Clearance 89 mL/min (70-130); Carbon Dioxide 36 mmol/L (23-31); Chloride 86 mmol/L (98-107); Estimated GFR-MDRD Greater than 90; Glucose 138 mg/dL (80-115); Sodium 126 mmol/L (136-145)
[2019-04-15] MEDS: metroNIDAZOLE 500 MG in Premix Bag 1 BAG IVPB SCH ×3 (05:00→18:15)
[2019-04-15] MEDS: methylPREDNISolone Sod Succ 40 MG VIAL IVP SCH ×3 (05:01→21:14)
[2019-04-15] MEDS ORDERED: Dextrose 5% in Water 1,000 ML IV SCH (05:15)
[2019-04-15] MEDS: Dextrose 5% in Water 1,000 ML IV SCH ×3 (05:51→16:42)
--- NOTE | 2019-04-15 08:18 | PDOC.MOPN ---
Interval History: Pt states her breathing feels easier, currently on BiPAP. Says she wants her hip surgery. I discussed her path results with her, morphology most consistent with Small Cell Carcinoma. I explained to her that she is too ill for hip surgery at this time and if her SCLC is not treated that she will cont to worsen. I discussed starting treatment with chemotherapy including side effects of fatigue, N/V/D, infusion reactions, and cytopenias. She agrees to proceed. - Vital Signs Vital Signs: Vital Signs (12 hours) Temp Pulse Resp Pulse Ox 04/15/19 07:47 102 H 04/15/19 07:46 101 H 16 91 L 04/15/19 03:57 97.9 F 04/14/19 23:56 97 04/14/19 23:21 97.5 F L Weight Weight 109 lb 9.6 oz Most Recent Monitor Data Heart Rate from ECG 94 NIBP 108/67 NIBP BP-Mean 80 Respiration from ECG 17 SpO2 91 - Physical Exam General: Alert, Oriented x3, Cooperative, Mild distress HEENT: EOMI Lungs: Other (less wheezing than prior) Cardiovascular: Regular rate Abdomen: Soft Neurological: Cranial nerves 3-12 NL Psych/Mental Status: Mental status NL - Labs Result Diagrams: 04/14/19 03:36 04/15/19 03:36 Lab results: Laboratory Results - last 24 hr 04/15/19 03:36: Sodium 126 L, Potassium 4.0, Chloride 86 L, Carbon Dioxide 36 H , Anion Gap 8 L, BUN 8 L, Creatinine 0.46 L, Estimated GFR (MDRD) Greater than 90, Glucose 138 H, Calcium 9.0 04/14/19 20:57: Sodium 128 L, Potassium 4.1, Chloride 86 L, Carbon Dioxide 36 H , Anion Gap 10, BUN 10, Creatinine 0.51 L, Estimated GFR (MDRD) Greater than 90 , Glucose 202 H, Calcium 9.2 04/14/19 14:53: Sodium 122 L, Potassium 4.2, Chloride 82 L, Carbon Dioxide 33 H , Anion Gap 11, BUN 9 L, Creatinine 0.57 L, Estimated GFR (MDRD) Greater than 90, Glucose 228 H, Calcium 8.9 - Pathology Pathology: Scalp biopsy - most consistent with Small Cell Carcinoma A/P - Problem (1) Metastatic cancer Current Visit: Yes Code(s): C79.9 - SECONDARY MALIGNANT NEOPLASM OF UNSPECIFIED SITE Status: Acute (2) Right femoral fracture Current Visit: Yes Code(s): S72.91XA - UNSP FRACTURE OF RIGHT FEMUR, INIT FOR CLOS FX Status: Acute Qualifiers: Encounter type: subsequent encounter Femur location: intertrochanteric Fracture type: closed Fracture alignment: displaced (3) SIADH (syndrome of inappropriate ADH production) Current Visit: Yes Status: Acute - Plan Plan: start Carboplatin + VP16, Days 1-3, followed by Fulphila on Day 4. Cannot receive Tecentriq in the hospital so will hopefully add with C2. ~~ Daily CBC, CMP trend sodium, should improve over time with treatment of SCLC Monitor brain lesions for now given asymptomatic and systemic disease more of a risk at this time prognosis guarded
[2019-04-15] MEDS ORDERED: Tolvaptan 15 MG TAB PO SCH (09:00)
[2019-04-15 09:27] LABS: Anion Gap 11 mmol/L (10-20); BUN (Urea Nitrogen) 8 mg/dL (9.8-20.1); Calc. Creatinine Clearance 87 mL/min (70-130); Calcium 9.1 mg/dL (7.8-10.44); Carbon Dioxide 34 mmol/L (23-31); Chloride 84 mmol/L (98-107); Estimated GFR-MDRD Greater than 90; Glucose 181 mg/dL (80-115); Potassium 3.9 mmol/L (3.5-5.1); Sodium 125 mmol/L (136-145)
--- NOTE | 2019-04-15 09:59 | PRG ---
DATE OF SERVICE: 04/15/2019 SUBJECTIVE: Ms. Slater is a 68-year-old white female, seen by the Renal Service for hyponatremia. She is being followed up by Dr. Goel and I am covering for Dr. Goel. She has been started on tolvaptan. This was placed on hold yesterday. Serum sodium is relatively stable. She was also told by her oncologist that her histopath from the lung showed small cell carcinoma. Discussion for chemotherapy was discussed and the patient wished to proceed with this. OBJECTIVE: VITAL SIGNS: Blood pressure 108/67, heart rate 101, respiratory rate 16, pulse ox 91%, the patient noted on BiPAP. GENERAL: She is awake, not in overt distress. SKIN: Adequate turgor. HEENT: She has pinkish conjunctivae. Anicteric sclerae. NECK: No neck mass. No carotid bruits. No JVD. CHEST: No deformities. LUNGS: Decreased breath sounds. HEART: Normal sinus rhythm. No murmur. No gallops. No rubs. ABDOMEN: Globular, soft, nontender. No masses. EXTREMITIES: Trace edema. MEDICATIONS: Medications of April 15, 2019, were reviewed. LABORATORY DATA: Laboratories of April 15, 2019; sodium 126, potassium 4, chloride 86, carbon dioxide 36, BUN 8, creatinine 0.46, glucose 138, calcium 9. White count 16.3, hemoglobin 10.1. ASSESSMENT AND PLAN: 1. Hyponatremia secondary to presumed syndrome of inappropriate antidiuretic hormone secretion. The patient was placed on tolvaptan with improvement of serum sodium. This was placed on hold recently due to the rapid increase in the serum sodium. Today's serum sodium is 126, and yesterday, it is 128. If the patient remains unimproved, we can resume back the tolvaptan at 50 mg tablet once a day. Continue free water restriction. 2. Lung cancer - the patient is followed by her printing screen assembler. The possibility of chemotherapy is being entertained. 3. Chronic obstructive pulmonary disease? Currently on BiPAP. Pulmonary following. 4. Agree with current management. Job ID: [id number]
--- NOTE | 2019-04-15 10:54 | PRG ---
DATE OF SERVICE: 04/15/2019 SERVICE: Pulmonary Medicine. INTERVAL HISTORY: The patient is doing poorly from respiratory standpoint. Oxygen requirements are increasing and she is not able to tolerate any breaks off her BiPAP. We were able to do an FNA at bedside, and discovered that she does in fact have small cell carcinoma. She is going to end up getting chemotherapy today. Denies any fevers or chills. There were no significant overnight events and she is actually quite a bit more awake today. PHYSICAL EXAMINATION: VITAL SIGNS: Afebrile, pulse 101, blood pressure 108/67, respirations 16, and saturation 91%, currently on 95% delivered via BiPAP. HEENT: Normocephalic and atraumatic. Sclerae are white. Conjunctivae are pink. Oral mucosa is moist without lesions. LUNGS: Decent air entry. No prolonged expiratory phase or wheezing is appreciated. HEART: Normal rate. Regular. ABDOMEN: Soft, nontender, and nondistended. Bowel sounds are positive. MUSCULOSKELETAL: No cyanosis or clubbing. No pitting in the bilateral lower extremities. NEUROLOGIC: Grossly nonfocal. LABORATORY DATA: WBC 16.3, hemoglobin 10.1, platelets 226,000. INR 1.2. Sodium 125, potassium 3.9. Chloride 84, bicarb 34. Basic metabolic profile is otherwise unremarkable. Influenza A and B, blood cultures x2, and urine culture remain negative to date. FNA of the scalp lesion is positive for malignant cells. The morphology is consistent with small cell carcinoma. Immunohistochemical stains will be performed. ASSESSMENT: 1. Acute hypoxic respiratory failure. 2. Hyponatremia, secondary to syndrome of inappropriate antidiuretic hormone secretion. 3. Small cell carcinoma, widely metastatic. 4. Mechanical fall secondary to these medical issues, resulting in intertrochanteric hip fracture (pathologic fracture not excluded). DISCUSSION AND PLAN: The patient is doing very poorly from respiratory standpoint. From my perspective, we are trying to thread the eye of the needle here. She does not have any room for getting worse. She remains a very firm DNI/DNR. Hopefully, we can get her to chemotherapy, so that we have a chance of melting this cancer away and providing her with some degree of remission. The family is extremely realistic and understands that without securing her airway at this point, if things got worse before they get better, she is unlikely to survive this event. We are hoping for the final stains to come back today, so that we can move forward with chemotherapy as soon as possible. She will remain in the [facility]. Job ID: [id number]
[2019-04-15] MEDS ORDERED: Dexamethasone 10 MG/ML VIAL SLOW IVP SCH (13:15)
[2019-04-15] MEDS ORDERED: SODIUM CHLORIDE 0.9% IVPB SCH (13:15)
[2019-04-15] MEDS ORDERED: CARBOPLATIN IVPB SCH (13:15)
[2019-04-15] MEDS ORDERED: PALONOSETRON HCL 0.05 MG/ML 5 ML VIAL IVP SCH (13:15)
[2019-04-15] MEDS: Magnesium Oxide 400 MG TAB PO SCH ×2 (14:34→21:22)
[2019-04-15] MEDS: Saccharomyces boulardii 250 MG CAP PO SCH (14:34)
[2019-04-15] MEDS: Famotidine 20 MG TAB PO SCH ×2 (14:34→21:22)
--- NOTE | 2019-04-15 15:50 | PDOC.PALCO ---
Palliative Care Consult - Consult Details Requesting Physician: Dr Herrera Reason for Consult: goals of care, family support, complex decision-making Family Members Present: Patient son, daughter in law, and two grand daughters - Pertinent HPI 68 year old female who had a fall at home, presented to the emergency room for evaluation. Reported that she had had an increaser in weakness and recent falls. History of brain cancer. CT in emergency room identified a mass involving the right suprahilar region with invasion to the right upper lobe bronchus as well as hepatic lesions and bilateral adrenal metastatic lesions with malignant lymphadenophaty in the upper aspect of the abdomen. X-ray of hip conformed intertrochanteric fracture. Also confirmation of Intracranial metastatic disease and right parietal skull metastatic lesion. Admitted to the IMCU for medical management and further evaluation. - Pertinent PMH Glaucoma, possible brain cancer - Social History Alcohol Use: none Drug Use History: none Living Situation: independent - Allergies Allergies/Adverse Reactions: Allergies Allergy/AdvReac Type Severity Reaction Status Date / Time codeine Allergy Verified 04/13/19 03:44 Penicillins Allergy Verified 04/13/19 03:44 - Subjective BiPap with significant work of breathing. Family at bedside. Patient able to nob to questions and makes eye contact. Difficult to obtain a ROS secondary to labored respirations. - ROS Constitutional: weakness ENT: dry mouth Respiratory: shortness of breath Psychological: anxiety - Objective Vital Signs: Vital Signs - Most Recent Temp Pulse Resp BP Pulse Ox 97.9 F 112 H 40 H 92 L 04/15/19 03:57 04/15/19 13:54 04/15/19 13:52 04/15/19 13:52 Palliative Performance Scale: 30 - Physical Exam Constitutional: ill appearing, moderate distress HEENT: EOMI, moist MMs, sclera anicteric Respiratory: no wheezing, labored respirations Cardiovascular: RRR Gastrointestinal: non-tender, no distention, positive bowel sounds Musculoskeletal: no cyanosis, no clubbing, pulses present, edema present Skin: fragile, friable Psychiatric: A&O x 3 - Problem List (1) Palliative care encounter Code(s): Z51.5 - ENCOUNTER FOR PALLIATIVE CARE Current Visit: Yes Status: Acute (2) Acute respiratory failure with hypoxia Code(s): J96.01 - ACUTE RESPIRATORY FAILURE WITH HYPOXIA Current Visit: Yes Status: Acute (3) FTT (failure to thrive) in adult Current Visit: Yes Status: Acute (4) Right femoral fracture Code(s): S72.91XA - UNSP FRACTURE OF RIGHT FEMUR, INIT FOR CLOS FX Current Visit: Yes Status: Acute Qualifiers: Encounter type: subsequent encounter Femur location: intertrochanteric Fracture type: closed Fracture alignment: displaced (5) multiple liver mets Current Visit: Yes Status: Acute (6) small cell lung cancer with metastases Current Visit: Yes Status: Acute (7) Chronic anemia Code(s): D64.9 - ANEMIA, UNSPECIFIED Current Visit: Yes Status: Chronic - Plan/Recommendations Plan: Reviewed patient chart and insight from Oncology prior to encounter. Introduced Palliative Care to patient and family at bedside. Discussed goals of care related to current disease processes, specifically confirmed small cell lung cancer and what the patient is hopeful for. General life review with patient and family, although tearful they appear to be supportive of one another and had a gentle laughter as they all talked. Therapeutic listening an emotional support *Patient hopes to begin chemo 04/15/2019 *Hopeful to eventually have "breaks" from Bipap *Will follow up and further visit in relation to goals of care *Firm DNAR *Aggressive measures with the exception of DNAR/DNI [70] minutes spent on this encounter with >50% of the time in counseling and coordination of care. Thank you for this very appropriate consult.
--- NOTE | 2019-04-15 15:58 | PDOC.HOSPP ---
- Subjective Encounter Date: 04/15/19 Encounter Time: 11:30 Subjective: is on bipap, awake, responds to verbal stimuli daughter in law at bedside - Objective Vital Signs & Weight: Vital Signs (12 hours) Temp Pulse Resp Pulse Ox 04/15/19 13:54 112 H 04/15/19 13:52 111 H 40 H 92 L 04/15/19 12:00 92 L 04/15/19 11:41 106 H 04/15/19 08:00 97 04/15/19 07:47 102 H 04/15/19 07:46 101 H 16 91 L 04/15/19 03:57 97.9 F Weight Weight 109 lb 9.6 oz Most Recent Monitor Data Heart Rate from ECG 108 NIBP 117/71 NIBP BP-Mean 86 Respiration from ECG 35 SpO2 88 I&O: 04/14/19 04/15/19 04/16/19 06:59 06:59 06:59 Intake Total 940 1811 Output Total 1075 2400 Balance -135 -589 Result Diagrams: 04/14/19 03:36 04/15/19 09:00 Hospitalist ROS - Medication Medications: Active Medications Generic Name Dose Route Start Last Admin Trade Name Freq PRN Reason Stop Dose Admin Acetaminophen 650 mg 04/12/19 22:48 04/14/19 10:29 Tylenol PO 650 mg Q4H PRN Administration Headache/Fever/Mild Pain (1-3) Albuterol/Ipratropium 3 ml 04/13/19 13:00 04/15/19 13:52 Duoneb NEB 3 ml [id number] DAGOBERTO Administration Dexamethasone 10 mg 04/15/19 13:15 04/15/19 15:25 Decadron SLOW IVP 04/15/19 21:00 10 mg ONE DAGOBERTO Administration Famotidine 20 mg 04/13/19 09:00 04/15/19 14:34 Pepcid PO Not Given BID DAGOBERTO Fentanyl 25 mcg 04/14/19 11:00 04/14/19 11:59 Duragesic TD 25 mcg Q3D DAGOBERTO Administration Levofloxacin 500 mg/ Device 100 mls @ 100 mls/hr 04/13/19 22:00 04/14/19 21: 31 IVPB 100 mls Q24HR DAGOBERTO Administration Metronidazole 500 mg/ Device 100 mls @ 100 mls/hr 04/13/19 19:00 04/15/19 12: 49 IVPB 100 mls 0300,1100,1900 DAGOBERTO Administration Dextrose/Water 1,000 mls @ 100 mls/hr 04/15/19 05:22 04/15/19 05:51 D5w IV 1,000 mls .Q10H DAGOBERTO Administration Etoposide 145 mg/ Sodium 507.25 mls @ 507.25 mls/hr 04/15/19 13:15 04/15/19 15:29 Chloride IVPB 04/15/19 21:00 507.25 mls ONE DAGOBERTO Administration Magnesium Oxide 400 mg 04/13/19 09:00 04/15/19 14:34 Magnesium Oxide PO Not Given BID DAGOBERTO Melatonin 6 mg 04/13/19 22:47 04/14/19 21:32 Melatonin PO 6 mg HSPRN PRN Administration Insomnia Methylprednisolone Sodium Succinate 20 mg 04/14/19 14:00 04/15/19 13:00 Solu-Medrol IVP 20 mg Q8HR DAGOBERTO Administration Nicotine 7 mg 04/14/19 21:00 04/14/19 21:31 Nicoderm Patch TD 7 mg Q24HR DAGOBERTO Administration Palonosetron 0.25 mg 04/15/19 13:15 04/15/19 15:20 Aloxi IVP 04/15/19 21:00 0.25 mg ONE DAGOBERTO Administration Saccharomyces Boulardii 250 mg 04/13/19 09:00 04/15/19 14:34 Florastor PO Not Given DAILY DAGOBERTO Sodium Chloride 10 ml 04/12/19 22:48 04/14/19 21:31 Flush - Normal Saline IVF 10 ml PRN PRN Administration Saline Flush - Exam General Appearance: awake alert, ill appearing Eye: PERRL, anicteric sclera ENT: no oropharyngeal lesions, dry oral mucosa Neck: supple, no JVD Heart: RRR, no murmur Respiratory: no rales, rhonchi, wheezes Gastrointestinal: soft, non-tender, non-distended, normal bowel sounds Extremities - other findings: right LE shortened and in ext rotation Neurological: cranial nerve grossly intact, no focal deficits Hosp A/P (1) small cell lung cancer with metastases Status: Acute (2) SIADH (syndrome of inappropriate ADH production) Status: Acute (3) Right femoral fracture Code(s): S72.91XA - UNSP FRACTURE OF RIGHT FEMUR, INIT FOR CLOS FX Status: Acute Qualifiers: Encounter type: subsequent encounter Femur location: intertrochanteric Fracture type: closed Fracture alignment: displaced (4) multiple liver mets Status: Acute (5) Chronic anemia Code(s): D64.9 - ANEMIA, UNSPECIFIED Status: Chronic (6) Tobacco abuse Code(s): Z72.0 - TOBACCO USE Status: Chronic (7) Alcohol use disorder, mild, abuse Code(s): F10.10 - ALCOHOL ABUSE, UNCOMPLICATED Status: Chronic (8) FTT (failure to thrive) in adult Status: Acute - Plan is on fluid restriction and tolvaptan for siadh, sodium better at 125. poor prognosis with multiple mets from small cell lung cancer to occipital lobe , parietal skull, multiple large liver mets, adrenal glands and abd lymph nodes as well. nebs, steroids to perk her up a bit with hypoxia now low dose fentanyl tts for hip fracture and cancer d/w extensively, pt is DNAR, he is aware of poor prognosis, their children will be arriving to see her (04/13/2019). Palliative care consultation. will start carboplatin based chemotherapy from today.
[2019-04-15] MEDS: Acetaminophen 325 MG TAB PO PRN (18:23)
[2019-04-15] MEDS ORDERED: Methyl Salicylate/Menthol 85 GM TUBE TOP PRN (20:01)
[2019-04-15] MEDS: Nicotine 7 MG PATCH TD SCH (21:15)
[2019-04-15] MEDS: Melatonin 3 MG TAB PO PRN (21:22)
[2019-04-16] MEDS: metroNIDAZOLE 500 MG in Premix Bag 1 BAG IVPB SCH ×3 (03:47→19:59)
[2019-04-16 04:10] LABS: Anion Gap 12 mmol/L (10-20); BUN (Urea Nitrogen) 10 mg/dL (9.8-20.1); Calc. Creatinine Clearance 92 mL/min (70-130); Calcium 8.8 mg/dL (7.8-10.44); Carbon Dioxide 28 mmol/L (23-31); Chloride 86 mmol/L (98-107); Estimated GFR-MDRD Greater than 90; Glucose 136 mg/dL (80-115); Potassium 4.6 mmol/L (3.5-5.1); Sodium 121 mmol/L (136-145)
[2019-04-16] MEDS: methylPREDNISolone Sod Succ 40 MG VIAL IVP SCH ×3 (06:02→20:59)
[2019-04-16] MEDS: Saccharomyces boulardii 250 MG CAP PO SCH (07:50)
[2019-04-16] MEDS: Magnesium Oxide 400 MG TAB PO SCH ×2 (07:50→20:08)
[2019-04-16] MEDS: Famotidine 20 MG TAB PO SCH ×2 (07:50→20:08)
--- NOTE | 2019-04-16 08:23 | PDOC.MOPN ---
Interval History: C1D2 of chemo. Tolerated chemo well yesterday w/o N/V/D or other problems. SOB is stable. She wants to get in a wheelchair and be pushed around. - Vital Signs Vital Signs: Vital Signs (12 hours) Temp Pulse Resp Pulse Ox 04/16/19 07:44 125 H 04/16/19 07:43 126 H 43 H 89 L 04/16/19 07:24 97.6 F 04/16/19 03:43 97.7 F 04/15/19 23:35 97.4 F L 04/15/19 23:15 114 H 30 H 88 L Weight Weight 109 lb 11.2 oz Most Recent Monitor Data Heart Rate from ECG 121 NIBP 122/97 NIBP BP-Mean 105 Respiration from ECG 35 SpO2 77 - Physical Exam General: Alert, Oriented x3, Cooperative, Mild distress Lungs: Other (diffuse rhonchi) Cardiovascular: Regular rate Abdomen: Soft Neurological: Cranial nerves 3-12 NL Psych/Mental Status: Mental status NL - Labs Result Diagrams: 04/14/19 03:36 04/16/19 03:34 Lab results: Laboratory Results - last 24 hr 04/16/19 03:34: Sodium 121 L, Potassium 4.6, Chloride 86 L, Carbon Dioxide 28, Anion Gap 12, BUN 10, Creatinine 0.44 L, Estimated GFR (MDRD) Greater than 90, Glucose 136 H, Calcium 8.8 04/15/19 09:00: Sodium 125 L, Potassium 3.9, Chloride 84 L, Carbon Dioxide 34 H , Anion Gap 11, BUN 8 L, Creatinine 0.48 L, Estimated GFR (MDRD) Greater than 90, Glucose 181 H, Calcium 9.1 04/12/19 18:35: Crossmatch See Detail - Pathology Pathology: Scalp Biopsy - Small Cell Carcinoma of Lung A/P - Problem (1) Metastatic cancer Current Visit: Yes Code(s): C79.9 - SECONDARY MALIGNANT NEOPLASM OF UNSPECIFIED SITE Status: Deleted (2) Right femoral fracture Current Visit: Yes Code(s): S72.91XA - UNSP FRACTURE OF RIGHT FEMUR, INIT FOR CLOS FX Status: Acute Qualifiers: Encounter type: subsequent encounter Femur location: intertrochanteric Fracture type: closed Fracture alignment: displaced (3) SIADH (syndrome of inappropriate ADH production) Current Visit: Yes Status: Acute - Plan Plan: C1D2 of Carboplatin + VP16, Days 1-3, followed by Fulphila on Day 4. May/may not receive Tecentriq in the hospital so will hopefully add with C2 if not ~~ Daily CBC, CMP trend sodium, should improve over time with treatment of SCLC Monitor brain lesions for now given asymptomatic and systemic disease more of a risk at this time prognosis guarded
--- NOTE | 2019-04-16 08:46 | OP ---
DATE OF PROCEDURE: 04/14/19 SURGEON: Ronan Koroma PA-C. PREOPERATIVE DIAGNOSIS: Right parietal scalp and skull lesion. INDICATION: Histopathology biopsy for diagnostic purposes. PROCEDURE: Right parietal scalp lesion FNA and possible incision and open biopsy of mass. PROCEDURE IN DETAIL: Surgical site was identified to the right parietal scalp, obvious 3 cm x 3 cm p alpable mass to the right parietal scalp. This is soft in nature. The scalp was prepped and marked an d infiltrated with 1% lidocaine with epinephrine 2 mL. The patient was draped out and two 22 gauge ne edles were utilized for fine needle aspirate of the mass taking a transverse cross-section. The patie nt had difficulties tolerating discomfort during this procedure and so we aborted the open biopsy. Mi nimal blood loss.
--- NOTE | 2019-04-16 09:48 | PRG ---
DATE OF SERVICE: 04/16/2019 SUBJECTIVE: Ms. Slater is a 68-year-old white female, followed up by the [facility] for her hyponatremia secondary to SIADH. Tolvaptan was placed on hold yesterday. However, serum sodium has worsened today at a value of 121. Our plan is to restart the tolvaptan at 15 mg tablet once a day. She also has a small cell carcinoma. She has discussed with oncologist and wished to proceed with IV chemotherapy. She received etoposide recently. No new complaints. OBJECTIVE: VITAL SIGNS: Blood pressure is 122/97 with heart rate of 126, respiratory rate 43, O2 saturation 89%, currently on BiPAP. GENERAL: Noted to be awake, in mild respiratory distress, currently on a BiPAP. SKIN: Adequate turgor. HEENT: She has pinkish conjunctivae. Anicteric sclerae. No neck mass. No carotid bruits. No JVD. CHEST: No deformities. LUNGS: Decreased breath sounds. HEART: Tachycardic. No murmur. No gallops. No rubs. ABDOMEN: Globular, soft, nontender. EXTREMITIES: No edema. MEDICATIONS: Medications of April 16, 2019, was reviewed. LABORATORY DATA: Laboratories of April 14, 2019, white count 16.3, hemoglobin 10.1. Sodium is noted at 121, potassium 4.6 chloride 86, carbon dioxide 28, BUN 10, creatinine 0.44, calcium 8.8, glucose 136. ASSESSMENT AND PLAN: 1. Hyponatremia secondary to SIADH. We will restart back tolvaptan 15 mg tablet once a day. No indication for any hypertonic saline at the present time. Continue free water restriction. 2. Lung cancer-currently on chemotherapy. Oncology is following. 3. Agree with current management. Job ID: [id number]
--- NOTE | 2019-04-16 13:36 | PDOC.HOSPP ---
- Subjective Encounter Date: 04/16/19 Encounter Time: 13:00 Subjective: is on bipap, awake, no pain - Objective Vital Signs & Weight: Vital Signs (12 hours) Temp Pulse Resp Pulse Ox 04/16/19 13:08 119 H 04/16/19 13:04 116 H 22 H 90 L 04/16/19 11:20 98.4 F 04/16/19 07:44 125 H 04/16/19 07:43 126 H 43 H 89 L 04/16/19 07:24 97.6 F 04/16/19 03:43 97.7 F Weight Weight 109 lb 11.2 oz Most Recent Monitor Data Heart Rate from ECG 120 NIBP 112/70 NIBP BP-Mean 84 Respiration from ECG 28 SpO2 89 I&O: 04/15/19 04/16/19 04/17/19 06:59 06:59 06:59 Intake Total 1811 481 Output Total 2400 250 Balance -589 231 Result Diagrams: 04/14/19 03:36 04/16/19 03:34 Hospitalist ROS - Medication Medications: Active Medications Generic Name Dose Route Start Last Admin Trade Name Freq PRN Reason Stop Dose Admin Acetaminophen 650 mg 04/12/19 22:48 04/15/19 18:23 Tylenol PO 650 mg Q4H PRN Administration Headache/Fever/Mild Pain (1-3) Albuterol/Ipratropium 3 ml 04/13/19 13:00 04/16/19 13:04 Duoneb NEB 3 ml [id number] DAGOBERTO Administration Famotidine 20 mg 04/13/19 09:00 04/16/19 07:50 Pepcid PO Not Given BID DAGOBERTO Fentanyl 25 mcg 04/14/19 11:00 04/14/19 11:59 Duragesic TD 25 mcg Q3D DAGOBERTO Administration Levofloxacin 500 mg/ Device 100 mls @ 100 mls/hr 04/13/19 22:00 04/15/19 21: 13 IVPB 100 mls Q24HR DAGOBERTO Administration Metronidazole 500 mg/ Device 100 mls @ 100 mls/hr 04/13/19 19:00 04/16/19 11: 23 IVPB 100 mls 0300,1100,1900 DAGOBERTO Administration Magnesium Oxide 400 mg 04/13/19 09:00 04/16/19 07:50 Magnesium Oxide PO Not Given BID DAGOBERTO Melatonin 6 mg 04/13/19 22:47 04/15/19 21:22 Melatonin PO 6 mg HSPRN PRN Administration Insomnia Menthol/Methyl Salicylate 120 gm 04/15/19 20:01 04/15/19 21:13 Muscle Rub Cream (Bengay) TOP 120 gm PRN PRN Administration Muscle Pain Methylprednisolone Sodium Succinate 20 mg 04/14/19 14:00 04/16/19 06:02 Solu-Medrol IVP 20 mg Q8HR DAGOBERTO Administration Nicotine 7 mg 04/14/19 21:00 04/15/19 21:15 Nicoderm Patch TD 7 mg Q24HR DAGOBERTO Administration Saccharomyces Boulardii 250 mg 04/13/19 09:00 04/16/19 07:50 Florastor PO Not Given DAILY DAGOBERTO Sodium Chloride 10 ml 04/12/19 22:48 04/15/19 21:14 Flush - Normal Saline IVF 10 ml PRN PRN Administration Saline Flush - Exam General Appearance: awake alert Eye: PERRL, anicteric sclera ENT: no oropharyngeal lesions, dry oral mucosa Neck: supple, no JVD Heart: RRR, no murmur Respiratory: no wheezes, no rales Gastrointestinal: soft, non-tender, non-distended, normal bowel sounds Extremities: no cyanosis, 1+ LE edema Extremities - other findings: right LE is short and in ext rotation Neurological: cranial nerve grossly intact, no focal deficits Hosp A/P (1) small cell lung cancer with metastases Status: Acute (2) SIADH (syndrome of inappropriate ADH production) Status: Acute (3) Right femoral fracture Code(s): S72.91XA - UNSP FRACTURE OF RIGHT FEMUR, INIT FOR CLOS FX Status: Acute Qualifiers: Encounter type: subsequent encounter Femur location: intertrochanteric Fracture type: closed Fracture alignment: displaced (4) multiple liver mets Status: Acute (5) Chronic anemia Code(s): D64.9 - ANEMIA, UNSPECIFIED Status: Chronic (6) Tobacco abuse Code(s): Z72.0 - TOBACCO USE Status: Chronic (7) Alcohol use disorder, mild, abuse Code(s): F10.10 - ALCOHOL ABUSE, UNCOMPLICATED Status: Chronic (8) FTT (failure to thrive) in adult Status: Acute - Plan is on tolvaptan for siadh, sodium around 121. poor prognosis with multiple mets from small cell lung cancer to occipital lobe , parietal skull, multiple large liver mets, adrenal glands and abd lymph nodes as well. nebs, steroids to perk her up a bit with hypoxia now low dose fentanyl tts for hip fracture and cancer d/w extensively, pt is DNAR, he is aware of poor prognosis, their children will be arriving to see her (04/13/2019). Palliative care consultation. got 1 dose carboplatin 04/15/2019, now is on etoposide and atezolizumab.
[2019-04-16] MEDS ORDERED: Dexamethasone 10 MG/ML VIAL SLOW IVP SCH (14:00)
[2019-04-16] MEDS: Nicotine 7 MG PATCH TD SCH (20:03)
[2019-04-17] MEDS ORDERED: Lorazepam 2 MG/ML VIAL SLOW IVP SCH (02:30)
[2019-04-17 03:53] LABS: Anion Gap 13 mmol/L (10-20); BUN (Urea Nitrogen) 15 mg/dL (9.8-20.1); Calc. Creatinine Clearance 87 mL/min (70-130); Carbon Dioxide 31 mmol/L (23-31); Chloride 89 mmol/L (98-107); Estimated GFR-MDRD Greater than 90; Glucose 130 mg/dL (80-115); Potassium 4.9 mmol/L (3.5-5.1); Sodium 128 mmol/L (136-145)
[2019-04-17] MEDS: metroNIDAZOLE 500 MG in Premix Bag 1 BAG IVPB SCH ×3 (04:20→20:01)
[2019-04-17] MEDS: methylPREDNISolone Sod Succ 40 MG VIAL IVP SCH (05:24)
[2019-04-17] MEDS: Famotidine 20 MG TAB PO SCH ×2 (07:21→20:05)
[2019-04-17] MEDS: Magnesium Oxide 400 MG TAB PO SCH ×2 (07:21→20:05)
[2019-04-17] MEDS: Saccharomyces boulardii 250 MG CAP PO SCH (07:21)
[2019-04-17] MEDS ORDERED: Tolvaptan 15 MG TAB PO SCH (09:00)
--- NOTE | 2019-04-17 09:27 | PRG ---
DATE OF SERVICE: 04/16/2019 SERVICE: Pulmonary Medicine. INTERVAL HISTORY: The patient has had chemotherapy on 2 separate occasions at this point. That being said, her oxygen requirements remain quite elevated. Otherwise, there has been no interval change to her condition. She specifically denies fevers or chills overnight. She indicates that she is not having much in the way of breathing difficulty, though any interruption in BiPAP causes very severe desaturations. She is on 90% FiO2 and her saturations are only marginal. That being said, we hope that she is going to have a robust recovery once the chemotherapy has a chance to kick in. PHYSICAL EXAMINATION: VITAL SIGNS: Afebrile, pulse 132, blood pressure 118/66, respirations 25, saturation 93%, currently on BiPAP with 90% FiO2. HEENT: Normocephalic and atraumatic. Sclerae white. Conjunctivae pink. Oral mucosa is moist without lesions. LUNGS: Wonderful air entry bilaterally. No crackles or rhonchi appreciated. HEART: Normal rate. Regular. ABDOMEN: Soft, nontender, and nondistended. Bowel sounds are positive. MUSCULOSKELETAL: No cyanosis or clubbing. There is diffuse 1 to 2+ pitting throughout. However, she has signs of significant volume reduction recently. LABORATORY DATA: Sodium 121, potassium 4.6, chloride 89. Basic metabolic profile is otherwise unremarkable. Blood cultures x2, influenza A and B, and urine culture are all negative to date. ASSESSMENT: 1. Acute hypoxic respiratory failure. 2. Small cell carcinoma, status post 2 days of chemotherapy. 3. Hyponatremia secondary to syndrome of inappropriate antidiuretic hormone secretion, improving. 4. Mechanical fall secondary to these medical issues resulting in left-sided intertrochanteric hip fracture (pathologic fracture not excluded). DISCUSSION AND PLAN: We will continue support on the BiPAP. Hopefully, once the small cell lung cancer melts away, her oxygen requirements will dramatically improve. At this point, she remains a firm DNI/DNR. Pulmonary will continue to follow in this location, but at this point, she will need to stay in the IM. Job ID: [id number]
--- NOTE | 2019-04-17 09:36 | PDOC.MOPN ---
Interval History: doing ok, tolerated less FiO2 on BPAP - Vital Signs Vital Signs: Vital Signs (12 hours) Temp Pulse Resp Pulse Ox 04/17/19 08:08 118 H 04/17/19 08:07 121 H 27 H 99 04/17/19 07:43 97 F L 04/17/19 03:50 97.5 F L 04/16/19 23:46 119 H 16 96 04/16/19 23:25 97.4 F L Weight Weight 109 lb 8 oz Most Recent Monitor Data Heart Rate from ECG 116 NIBP 107/74 NIBP BP-Mean 91 Respiration from ECG 23 SpO2 100 - Physical Exam General: Alert HEENT: Atraumatic Lungs: Other (crackles) Cardiovascular: Other (tachy) Abdomen: Normal bowel sounds, Soft, No tenderness, No hepatospenomegaly, No masses Extremities: Other (1+ BLE edema) Neurological: Normal speech Psych/Mental Status: Mental status NL - Labs Result Diagrams: 04/14/19 03:36 04/17/19 03:19 Lab results: Laboratory Results - last 24 hr 04/17/19 03:19: Sodium 128 L, Potassium 4.9, Chloride 89 L, Carbon Dioxide 31, Anion Gap 13, BUN 15, Creatinine 0.48 L, Estimated GFR (MDRD) Greater than 90, Glucose 130 H, Calcium 9.0 Status: lab reviewed by me A/P - Problem (1) Acute respiratory failure with hypoxia Current Visit: Yes Code(s): J96.01 - ACUTE RESPIRATORY FAILURE WITH HYPOXIA Status: Acute (2) small cell lung cancer with metastases Current Visit: Yes Status: Acute - Plan Plan: C1D3 of Carboplatin + VP16, Days 1-3, followed by Fulphila on Day 4. May/may not receive Tecentriq in the hospital so will hopefully add with C2 if not ~~ Daily CBC, CMP trend sodium, should improve over time with treatment of SCLC Monitor brain lesions for now given asymptomatic and systemic disease more of a risk at this time prognosis guarded
--- NOTE | 2019-04-17 13:08 | PRG ---
DATE OF SERVICE: 04/17/2019 SERVICE: Pulmonary Medicine. INTERVAL HISTORY: The patient is improving a little bit from a respiratory standpoint. Her oxygen requirements on BiPAP have improved to about 60% FiO2. She cannot provide much in the way of interval history. She is little bit more somnolent today than yesterday. She is tolerating chemotherapy so far quite well. Otherwise, there has been no interval change to her condition. PHYSICAL EXAMINATION: VITAL SIGNS: Afebrile; pulse 119; blood pressure 103/67; respirations 16; saturation 94%, currently on 70% FiO2 delivered via BiPAP. HEENT: Normocephalic and atraumatic. Sclerae are white. Conjunctivae are pink. Oral mucosa is moist without lesions. LUNGS: Good air entry bilaterally. There are rhonchi on the right. No prolonged expiratory phase or wheezing is appreciated. HEART: Normal rate. Regular. ABDOMEN: Soft, nontender, and nondistended. Bowel sounds are positive. MUSCULOSKELETAL: No cyanosis or clubbing. There is no pitting in bilateral lower extremities. NEUROLOGIC: Grossly nonfocal. She demonstrates a little bit more encephalopathy today than prior. She is also touch more sleepy. LABORATORY DATA: WBC 16.3, hemoglobin 10.1 and stable, and platelets 226,000. Sodium 128 and gently up-trending. Basic metabolic profile is otherwise unremarkable. Chloride continues to improve as well. Urinalysis is negative. Blood cultures x2, influenza, and urinalysis is negative. ASSESSMENT: 1. Acute hypoxic respiratory failure. 2. Small cell lung cancer, widely metastatic. 3. Hyponatremia secondary to syndrome of inappropriate antidiuretic hormone secretion, improving. 4. Mechanical fall secondary to these issues resulting in right-sided intertrochanteric hip fracture (pathologic fracture not excluded). DISCUSSION AND PLAN: Her oxygen requirements are improving ever so slightly. As such, we are going to start giving her breaks off her BiPAP 3 times daily and increase as tolerated. She remains a firm DNR. Hopefully, we will be able to get through this process without significant respiratory event. If she does have respiratory event, we have firmed with the patient that we are not to be aggressive with intubations or chest compressions. Job ID: [id number]
[2019-04-17] MEDS ORDERED: ATEZOLIZUMAB 1,200 MG in Sodium Chloride 0.9% 250 ML 250 ML IV SCH (14:00)
[2019-04-17] MEDS ORDERED: Dexamethasone 10 MG/ML VIAL SLOW IVP SCH (14:00)
[2019-04-17] MEDS ORDERED: Pegfilgrastim Onpro 6 MG/0.6 ML SQ SCH (14:00)
[2019-04-17] MEDS ORDERED: PEGFILGRASTIM-JMDB 6 MG/0.6 ML SYRINGE SQ SCH (14:45)
--- NOTE | 2019-04-17 15:57 | PRG ---
DATE OF SERVICE: 04/17/2019 SERVICE: Nephrology. SUBJECTIVE: A 68-year-old female with metastatic small cell cancer of the lungs, seen in followup for hyponatremia. The patient's respiratory status worsened and she is currently getting continues BiPAP treatment. The patient is day 2. The patient is currently getting chemotherapy for small-cell lung cancer. No new problems. Denied nausea, vomiting. Oral intake has been pretty much nonexistent and the patient was started on IV normal saline earlier today at 100 mL/hours. OBJECTIVE: VITAL SIGNS: Temperature 97, pulse 119, respiratory rate 16, SpO2 of 94% on BiPAP. Blood pressure is 103/67. GENERAL: Chronically ill-looking female, in some respiratory distress. HEENT: Normocephalic, atraumatic. BiPAP is in place. CARDIOVASCULAR: Regular rhythm, but tachycardic. RESPIRATORY: Fair air entry bilaterally with scattered crackles and transmitted breath sounds. Work of breathing is increased. GI: Full, soft, nontender, nondistended with normal bowel sounds. EXTREMITIES: Right lower extremity is held in lateral rotation with some swelling of the of the thigh. VOUCHER EXAMINER: The patient is sleepy, but easily arousable. Oriented to person at least. DIAGNOSTIC DATA: BMP today showed sodium 128, potassium 4.9, chloride 89, CO2 of 31, BUN 15, creatinine 0.48, glucose 130, calcium 9.0. ASSESSMENT: 1. Hyponatremia: Due to syndrome of inappropriate antidiuretic hormone. 2. On admission, serum sodium was 111 and this has improved to 128 currently. The patient is n.p.o. currently, was started on normal saline. It is anticipated that this might reduce the serum sodium. The patient also is on Samsca. 3. Metastatic lung cancer of small cell type. Started on chemotherapy. The patient is at increased risk of tumor lysis syndrome. 4. Sinus tachycardia: Most likely due to volume contraction from poor oral intake. 5. Right hip fracture. 6. Protein-calorie malnutrition. 7. Acute respiratory failure with hypoxia: The patient is BiPAP dependent. The patient is do not resuscitate, hence not intubated. PLAN: 1. We will continue Samsca (tolvaptan) 15 mg daily. 2. We will recheck BMP in the morning. 3. I agree with IV fluid therapy as the patient is n.p.o. due to respiratory distress. 4. We will also get magnesium and phosphorus as well as uric acid in the morning as patient is at increased risk of tumor lysis syndrome. 5. Nutritional rehabilitation is recommended either by parenteral or enteral route. Case was discussed with primary attending. We will continue to follow. Further treatment to follow depending on hospital course. Job ID: [id number]
--- NOTE | 2019-04-17 16:35 | PDOC.HOSPP ---
- Subjective Encounter Date: 04/17/19 Encounter Time: 10:30 Subjective: awake, is on bipap no pain today - Objective Vital Signs & Weight: Vital Signs (12 hours) Temp Pulse Resp Pulse Ox 04/17/19 16:26 96.1 F L 04/17/19 13:38 114 H 19 98 04/17/19 12:00 97 F L 04/17/19 09:39 95 04/17/19 08:08 118 H 04/17/19 08:07 121 H 27 H 99 04/17/19 08:00 100 04/17/19 07:43 97 F L Weight Weight 109 lb 8 oz Most Recent Monitor Data Heart Rate from ECG 117 NIBP 100/70 NIBP BP-Mean 80 Respiration from ECG 25 SpO2 93 I&O: 04/16/19 04/17/19 04/18/19 06:59 06:59 06:59 Intake Total 481 880 Output Total 250 775 Balance 231 105 Result Diagrams: 04/14/19 03:36 04/17/19 03:19 Hospitalist ROS - Medication Medications: Active Medications Generic Name Dose Route Start Last Admin Trade Name Freq PRN Reason Stop Dose Admin Acetaminophen 650 mg 04/12/19 22:48 04/15/19 18:23 Tylenol PO 650 mg Q4H PRN Administration Headache/Fever/Mild Pain (1-3) Albuterol/Ipratropium 3 ml 04/13/19 13:00 04/17/19 13:38 Duoneb NEB 3 ml [id number] DAGOBERTO Administration Dexamethasone 10 mg 04/17/19 14:00 04/17/19 13:52 Decadron SLOW IVP 04/17/19 21:00 10 mg ONE DAGOBERTO Administration Famotidine 20 mg 04/13/19 09:00 04/17/19 07:21 Pepcid PO Not Given BID DAGOBERTO Levofloxacin 500 mg/ Device 100 mls @ 100 mls/hr 04/13/19 22:00 04/16/19 20: 56 IVPB 100 mls Q24HR DAGOBERTO Administration Etoposide 145 mg/ Sodium 507.25 mls @ 507.25 mls/hr 04/17/19 14:00 04/17/19 13:55 Chloride IVPB 04/17/19 21:00 507.25 mls ONE DAGOBERTO Administration Metronidazole 500 mg/ Device 100 mls @ 100 mls/hr 04/16/19 20:00 04/17/19 11: 03 IVPB 100 mls 0400,1200,2000 DAGOBERTO Administration Magnesium Oxide 400 mg 04/13/19 09:00 04/17/19 07:21 Magnesium Oxide PO Not Given BID DAGOBERTO Melatonin 6 mg 04/13/19 22:47 04/15/19 21:22 Melatonin PO 6 mg HSPRN PRN Administration Insomnia Menthol/Methyl Salicylate 120 gm 04/15/19 20:01 04/15/19 21:13 Muscle Rub Cream (Bengay) TOP 120 gm PRN PRN Administration Muscle Pain Nicotine 7 mg 04/14/19 21:00 04/16/19 20:03 Nicoderm Patch TD 7 mg Q24HR DAGOBERTO Administration Saccharomyces Boulardii 250 mg 04/13/19 09:00 04/17/19 07:21 Florastor PO Not Given DAILY DAGOBERTO Sodium Chloride 10 ml 04/12/19 22:48 04/15/19 21:14 Flush - Normal Saline IVF 10 ml PRN PRN Administration Saline Flush Tolvaptan 15 mg 04/17/19 09:00 04/17/19 07:22 Samsca PO Not Given DAILY DAGOBERTO - Exam General Appearance: awake alert Eye: PERRL, anicteric sclera ENT: no oropharyngeal lesions, dry oral mucosa Neck: supple, no JVD Heart: RRR, no murmur Respiratory: no wheezes, no rales, rhonchi Gastrointestinal: soft, non-tender, non-distended, normal bowel sounds Extremities: no edema Extremities - other findings: right LE is short and ext rotated Neurological: cranial nerve grossly intact, no focal deficits Hosp A/P (1) small cell lung cancer with metastases Status: Acute (2) SIADH (syndrome of inappropriate ADH production) Status: Acute (3) Right femoral fracture Code(s): S72.91XA - UNSP FRACTURE OF RIGHT FEMUR, INIT FOR CLOS FX Status: Acute Qualifiers: Encounter type: subsequent encounter Femur location: intertrochanteric Fracture type: closed Fracture alignment: displaced (4) multiple liver mets Status: Acute (5) Chronic anemia Code(s): D64.9 - ANEMIA, UNSPECIFIED Status: Chronic (6) Tobacco abuse Code(s): Z72.0 - TOBACCO USE Status: Chronic (7) Alcohol use disorder, mild, abuse Code(s): F10.10 - ALCOHOL ABUSE, UNCOMPLICATED Status: Chronic (8) FTT (failure to thrive) in adult Status: Acute - Plan is on tolvaptan for siadh, sodium around 128. poor prognosis with multiple mets from small cell lung cancer to occipital lobe , parietal skull, multiple large liver mets, adrenal glands and abd lymph nodes as well. nebs, steroids to perk her up a bit with hypoxia now low dose fentanyl tts for hip fracture and cancer d/w extensively, pt is DNAR, he is aware of poor prognosis, their children will be arriving to see her (04/13/2019). Palliative care consultation. got 1 dose carboplatin 04/15/2019, now is on etoposide and atezolizumab. oral feeding between bipap breaks.
[2019-04-17] MEDS: Sodium Chloride 0.9% 1,000 ML IV SCH (18:31)
[2019-04-17] MEDS: Dexamethasone 4 mg/ml Vial SLOW IVP SCH (20:03)
[2019-04-17] MEDS: Nicotine 7 MG PATCH TD SCH (21:06)
[2019-04-18] MEDS: metroNIDAZOLE 500 MG in Premix Bag 1 BAG IVPB SCH ×3 (04:35→20:41)
[2019-04-18] MEDS: Sodium Chloride 0.9% 1,000 ML IV SCH (04:35)
[2019-04-18 06:24] LABS: Phosphorus 3.4 mg/dL (2.3-4.7)
[2019-04-18 06:30] LABS: Band 37 % (5-11); MDiff Complete? YES; Mean Corpuscular HGB CONC 31.4 g/dL (32.0-36.0); Mean Corpuscular Hemoglobin 33.7 pg (27.0-31.0); Mean Platelet Volume 6.9 fL (7.4-10.4); Neutrophil 63 % (42-75); Platelet Count 191 thou/uL (130-400); Platelet Morphology Comment Appears Adequate; RBC Distribution Width 12.2 % (11.5-14.5); Red Blood Cell (RBC) Count 2.98 mill/uL (4.20-5.40); White Blood Cell (WBC) Count 21.8 thou/uL (4.8-10.8)
[2019-04-18 06:41] LABS: ALT (SGPT) 23 U/L (8-55); AST (SGOT) 20 U/L (5-34); Alkaline Phosphatase 75 U/L (40-110); BUN (Urea Nitrogen) 16 mg/dL (9.8-20.1); Bilirubin, Total 0.5 mg/dL (0.2-1.2); Calc. Creatinine Clearance 95 mL/min (70-130); Calcium 8.7 mg/dL (7.8-10.44); Carbon Dioxide 36 mmol/L (23-31); Estimated GFR-MDRD Greater than 90; Glucose 123 mg/dL (80-115); Magnesium 2.3 mg/dL (1.6-2.6)
[2019-04-18 06:51] LABS: Anion Gap 10 mmol/L (10-20); Chloride 94 mmol/L (98-107); Potassium 5.4 mmol/L (3.5-5.1); Sodium 135 mmol/L (136-145)
[2019-04-18] MEDS ORDERED: PEGFILGRASTIM-JMDB 6 MG/0.6 ML SYRINGE SQ SCH (08:00)
[2019-04-18] MEDS: Dexamethasone 4 mg/ml Vial SLOW IVP SCH ×2 (09:17→20:41)
--- NOTE | 2019-04-18 09:58 | RAD ---
PORTABLE CHEST: Date: 04/18/2019 PROVIDED CLINICAL HISTORY: Mass and hypoxia. FINDINGS: Comparison made with the study dated 04/12/2019. Cardiac and mediastinal silhouette is unchanged in appearance, with mediastinal mass redemonstrated. There is interval development of bilateral perihilar air space disease and prominence of the pulmonar y vasculature. Bilateral pleural effusions are suspected. There is no evidence for pneumothorax. IMPRESSION: Development of bilateral perihilar air space disease and bilateral pleural effusions. Findings may re flect congestive failure and pulmonary edema. Aspiration or pneumonia could also be considered. Follo w-up is recommended. POS: OFF
[2019-04-18] MEDS ORDERED: Furosemide 20 MG/2 ML VIAL SLOW IVP SCH (11:15)
--- NOTE | 2019-04-18 11:18 | PRG ---
DATE OF SERVICE: 04/18/2019 SERVICE: Pulmonary Medicine. INTERVAL HISTORY: The patient is doing okay from respiratory standpoint. On BiPAP, she has been weaned down to 60% FiO2 and tolerating it just fine. She denies any current shortness of breath and is actually talking in full sentences. She appears to have slightly improved strength today. PHYSICAL EXAMINATION: VITAL SIGNS: Afebrile, pulse 115, blood pressure 126/87, respirations 19, saturation 97%, currently on 60% FiO2 delivered via BiPAP. GENERAL: The patient is awake and alert, in no apparent distress. LUNGS: Decent air entry. Crackles are present. No prolonged expiratory phase appreciated. HEART: Normal rate. Regular. ABDOMEN: Soft, nontender, and nondistended. Bowel sounds are positive. MUSCULOSKELETAL: No cyanosis or clubbing. No pitting in the bilateral lower extremities. NEUROLOGIC: Grossly nonfocal. LABORATORY DATA: WBC 21.8, hemoglobin 10.0, and platelets 191,000. INR 1.2. Potassium 5.4 and gently uptrending. Phosphorus 3.4. Liver function studies are otherwise unremarkable. Bicarb is trended up to 36. Urinalysis is unremarkable. Influenza A and B, urine culture, and blood cultures x2 are unremarkable. IMAGING STUDIES: Chest x-ray demonstrates bilateral perihilar airspace disease and effusions. ASSESSMENT: 1. Acute hypoxic respiratory failure. 2. Small-cell lung cancer, widely metastatic. 3. Hyponatremia secondary to syndrome of inappropriate antidiuretic hormone, improving. 4. Mechanical fall secondary to these medical issues, resulting in right-sided intertrochanteric hip fracture (pathologic fracture not excluded). DISCUSSION AND PLAN: The patient is volume up during this hospital stay. I will give her a dose of Lasix and continue her nebulized medications, antibiotics, and steroids. We will continue to try to give her breaks off the BiPAP 3 times daily on to high-flow nasal cannula and increase as tolerated. Pulmonary/Critical Care will continue to follow closely. Job ID: [id number]
--- NOTE | 2019-04-18 11:32 | PRG ---
DATE OF SERVICE: 04/18/2019 SERVICE: Nephrology. SUBJECTIVE: A 68-year-old female with metastatic lung cancer, seen in followup for hyponatremia. The patient is more awake today. She is, however, still BiPAP dependent. No nausea or vomiting. Oral intake remained little or nothing due to continued BiPAP use. She was started on IV fluid yesterday. OBJECTIVE: VITAL SIGNS: Temperature 97.8, pulse 115, respiratory rate 19, SpO2 of 97% on BiPAP, and blood pressure is 126/87. GENERAL: Chronically ill-looking female, in mild respiratory distress. Afebrile, anicteric, and acyanotic. HEENT: Normocephalic and atraumatic. BiPAP mask is in place. NECK: No JVD appreciated. CARDIOVASCULAR: Regular rhythm and rate, but tachycardic. RESPIRATORY: Decreased air entry on both bases. Otherwise, fair air entry with a few transmitted breath sounds and some crackles. No rhonchi were appreciated. Work of breathing is mildly increased. GI: Full, soft, nontender, and nondistended with normal bowel sounds. EXTREMITIES: Right lower extremity is laterally rotated with some tenderness at the thigh. No obvious edema is appreciated on both lower extremities. Mild bilateral upper extremity edema noted. 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 Oriented x3 with appropriate mental status. Cranial nerves 2 through 12 are grossly intact. DIAGNOSTIC DATA: CBC showed WBC count of 21, hemoglobin of 10.0, platelets of 191. BMP showed sodium 135, potassium 5.4, chloride 94, CO2 of 36, BUN 16, creatinine 0.44, and glucose 123. Uric acid 6, calcium 8.7, phosphorus 3.4, and magnesium 2.3. Total bilirubin 0.5, AST 20, ALT 23, and alkaline phosphatase 75. Total protein 5.0, albumin 3.0, and globulin 2.0. ASSESSMENT: 1. Hyponatremia: Due to syndrome of inappropriate antidiuretic hormone with possible contribution from poor solute intake. Sodium is up to 135 following admission of [facility]. However, with use of IV fluids, sodium did not drop, making contribution from poor solute intake and volume contraction possible. 2. Hyperkalemia: Most likely due to tumor lysis syndrome given small-cell lung cancer on chemotherapy. 3. Intravascular contraction with contraction alkalosis. 4. 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 Status post chemotherapy. The patient is at high risk for tumor lysis syndrome. 5. Protein-calorie malnutrition. 6. Right hip fracture. 7. Respiratory failure, requiring oxygen and BiPAP due to chronic obstructive pulmonary disease as well as obstructive pneumonia. PLAN: 1. We will increase IV fluid therapy to 150 mL/h. We will also give the patient a dose of Kayexalate given hyperkalemia. 2. Nutritional rehabilitation is recommended and if respiratory status could permit, recommencement of oral intake will be helpful. 3. We will continue to monitor electrolytes within high risk for tumor lysis syndrome. Further treatment to follow depending on hospital course. Job ID: [id number]
[2019-04-18] MEDS: Famotidine 20 MG TAB PO SCH ×2 (13:22→20:49)
[2019-04-18] MEDS: Saccharomyces boulardii 250 MG CAP PO SCH (13:23)
[2019-04-18] MEDS: Sodium Chloride 0.45% 1,000 ML IV SCH (13:28)
--- NOTE | 2019-04-18 13:54 | PDOC.HOSPP ---
- Subjective Encounter Date: 04/18/19 Encounter Time: 07:45 Subjective: is on bipap, awake, tries to respond to verbal stimuli - Objective Vital Signs & Weight: Vital Signs (12 hours) Temp Pulse Resp Pulse Ox 04/18/19 13:23 120 H 04/18/19 11:51 96.8 F L 04/18/19 08:00 95 04/18/19 07:37 97.8 F 04/18/19 07:18 113 H 04/18/19 07:16 113 H 30 H 94 L 04/18/19 03:36 98.2 F 04/18/19 02:14 113 H Weight Weight 110 lb 3.2 oz Most Recent Monitor Data Heart Rate from ECG 112 NIBP 99/86 NIBP BP-Mean 90 Respiration from ECG 7 SpO2 84 I&O: 04/17/19 04/18/19 04/19/19 06:59 06:59 06:59 Intake Total 880 1720 Output Total 775 1075 Balance 105 645 Result Diagrams: 04/18/19 05:49 04/18/19 05:49 Hospitalist ROS - Medication Medications: Active Medications Generic Name Dose Route Start Last Admin Trade Name Freq PRN Reason Stop Dose Admin Acetaminophen 650 mg 04/12/19 22:48 04/15/19 18:23 Tylenol PO 650 mg Q4H PRN Administration Headache/Fever/Mild Pain (1-3) Albuterol/Ipratropium 3 ml 04/13/19 13:00 04/18/19 07:16 Duoneb NEB 3 ml [id number] DAGOBERTO Administration Dexamethasone 4 mg 04/17/19 21:00 04/18/19 09:17 Decadron SLOW IVP 4 mg BID DAGOBERTO Administration Famotidine 20 mg 04/13/19 09:00 04/18/19 13:22 Pepcid PO Not Given BID DAGOBERTO Levofloxacin 500 mg/ Device 100 mls @ 100 mls/hr 04/13/19 22:00 04/17/19 21: 06 IVPB 100 mls Q24HR DAGOBERTO Administration Metronidazole 500 mg/ Device 100 mls @ 100 mls/hr 04/16/19 20:00 04/18/19 13: 25 IVPB 100 mls 0400,1200,2000 DAGOBERTO Administration Sodium Chloride 1,000 mls @ 50 mls/hr 04/18/19 11:15 04/18/19 13:28 1/2 Normal Saline IV 1,000 mls .Q20H DAGOBERTO Administration Melatonin 6 mg 04/13/19 22:47 04/15/19 21:22 Melatonin PO 6 mg HSPRN PRN Administration Insomnia Menthol/Methyl Salicylate 120 gm 04/15/19 20:01 04/15/19 21:13 Muscle Rub Cream (Bengay) TOP 120 gm PRN PRN Administration Muscle Pain Nicotine 7 mg 04/14/19 21:00 04/17/19 21:06 Nicoderm Patch TD 7 mg Q24HR DAGOBERTO Administration Saccharomyces Boulardii 250 mg 04/13/19 09:00 04/18/19 13:23 Florastor PO Not Given DAILY DAGOBERTO Sodium Chloride 10 ml 04/12/19 22:48 04/15/19 21:14 Flush - Normal Saline IVF 10 ml PRN PRN Administration Saline Flush - Exam General Appearance: awake alert Eye: PERRL, anicteric sclera ENT: no oropharyngeal lesions, moist mucosa Neck: supple, no JVD Heart: RRR, no murmur Respiratory: no wheezes, rales, rhonchi Gastrointestinal: soft, non-tender, non-distended, normal bowel sounds Extremities: no cyanosis, 1+ LE edema Neurological: cranial nerve grossly intact, no new deficit Hosp A/P (1) small cell lung cancer with metastases Status: Acute (2) SIADH (syndrome of inappropriate ADH production) Status: Acute (3) Right femoral fracture Code(s): S72.91XA - UNSP FRACTURE OF RIGHT FEMUR, INIT FOR CLOS FX Status: Acute Qualifiers: Encounter type: subsequent encounter Femur location: intertrochanteric Fracture type: closed Fracture alignment: displaced (4) multiple liver mets Status: Acute (5) Chronic anemia Code(s): D64.9 - ANEMIA, UNSPECIFIED Status: Chronic (6) Tobacco abuse Code(s): Z72.0 - TOBACCO USE Status: Chronic (7) Alcohol use disorder, mild, abuse Code(s): F10.10 - ALCOHOL ABUSE, UNCOMPLICATED Status: Chronic (8) FTT (failure to thrive) in adult Status: Acute - Plan off tolvaptan for siadh, sodium around 134. poor prognosis with multiple mets from small cell lung cancer to occipital lobe , parietal skull, multiple large liver mets, adrenal glands and abd lymph nodes as well. nebs, steroids low dose fentanyl tts for hip fracture and cancer d/w extensively, pt is DNAR, he is aware of poor prognosis, their children will be arriving to see her (04/13/2019). Palliative care consultation. got 1 dose carboplatin 04/15/2019, etoposide and atezolizumab first cycle is completed 04/17/2019. suggest oral feeding between bipap breaks.
--- NOTE | 2019-04-18 14:23 | PDOC.MOPN ---
Interval History: alert, remains on bpap at 65% fiO2 - Vital Signs Vital Signs: Vital Signs (12 hours) Temp Pulse Resp Pulse Ox 04/18/19 13:23 120 H 04/18/19 11:51 96.8 F L 04/18/19 08:00 95 04/18/19 07:37 97.8 F 04/18/19 07:18 113 H 04/18/19 07:16 113 H 30 H 94 L 04/18/19 03:36 98.2 F Weight Weight 110 lb 3.2 oz Most Recent Monitor Data Heart Rate from ECG 112 NIBP 99/86 NIBP BP-Mean 90 Respiration from ECG 7 SpO2 84 - Physical Exam General: Alert HEENT: Atraumatic, PERRLA, EOMI, Mucous membr. moist/pink Lungs: Other (wheezes, crackles) Cardiovascular: Other (tachycardia) Abdomen: Normal bowel sounds, Soft, No tenderness, No hepatospenomegaly, No masses Extremities: Other Skin: No rashes, No breakdown, No significant lesion Neurological: Normal speech - Labs Result Diagrams: 04/18/19 05:49 04/18/19 05:49 Lab results: Laboratory Results - last 24 hr 04/18/19 05:49: Phosphorus 3.4 04/18/19 05:49: WBC 21.8 H, RBC 2.98 L, Hgb 10.0 L, Hct 31.9 L, MCV 107.0 H, MCH 33.7 H, MCHC 31.4 L, RDW 12.2, Plt Count 191, MPV 6.9 L, Neutrophils % ( Manual) 63, Band Neuts % (Manual) 37 H, Plt Morphology Comment Appears Adequate 04/18/19 05:49: Sodium 135 L, Potassium 5.4 H, Chloride 94 L, Carbon Dioxide 36 H, Anion Gap 10, BUN 16, Creatinine 0.44 L, Estimated GFR (MDRD) Greater than 90, Glucose 123 H, Uric Acid 6.0, Calcium 8.7, Magnesium 2.3, Total Bilirubin 0.5, AST 20, ALT 23, Alkaline Phosphatase 75, Serum Total Protein 5.0 L, Albumin 3.0 L, Globulin 2.0 L, Albumin/Globulin Ratio 1.5 Status: lab reviewed by me A/P - Problem (1) Acute respiratory failure with hypoxia Current Visit: Yes Code(s): J96.01 - ACUTE RESPIRATORY FAILURE WITH HYPOXIA Status: Acute (2) small cell lung cancer with metastases Current Visit: Yes Status: Acute - Plan Plan: C1D4 of Carboplatin + VP16, Days 1-3, followed by Fulphila on Day 4. May/may not receive Tecentriq in the hospital so will hopefully add with C2 if not ~~ Daily CBC, CMP trend sodium, should improve over time with treatment of SCLC Monitor brain lesions for now given asymptomatic and systemic disease more of a risk at this time prognosis guarded
[2019-04-18] MEDS ORDERED: diphenhydrAMINE 50 MG/ML VIAL IVP SCH (20:00)
[2019-04-18] MEDS: Nicotine 7 MG PATCH TD SCH (20:44)
[2019-04-19] MEDS ORDERED: Ketorolac Tromethamine 30 MG/ML VIAL IVP SCH (01:45)
[2019-04-19 03:52] LABS: ALT (SGPT) 17 U/L (8-55); AST (SGOT) 20 U/L (5-34); Albumin 2.7 g/dL (3.4-4.8); Alkaline Phosphatase 71 U/L (40-110); BUN (Urea Nitrogen) 17 mg/dL (9.8-20.1); Bilirubin, Total 0.5 mg/dL (0.2-1.2); Calc. Creatinine Clearance 102 mL/min (70-130); Calcium 8.3 mg/dL (7.8-10.44); Estimated GFR-MDRD Greater than 90; Globulin 1.8 g/dL (2.4-3.5); Glucose 119 mg/dL (80-115); Magnesium 2.2 mg/dL (1.6-2.6); Phosphorus 3.3 mg/dL (2.3-4.7); Protein, Total 4.5 g/dL (6.0-8.3); Uric Acid 5.7 mg/dL (2.6-6.0)
[2019-04-19 03:53] LABS: Band 9 % (5-11); Hemoglobin 9.2 g/dL (12.0-16.0); Hypochromia SLIGHT = 6-15 cells (100X) (0-5/hpf); MDiff Complete? YES; Macrocytosis SLIGHT = 6-15 cells (100X) (0-5/hpf); Mean Corpuscular Hemoglobin 35.3 pg (27.0-31.0); Mean Platelet Volume 7.7 fL (7.4-10.4); Neutrophil 91 % (42-75); Platelet Count 113 thou/uL (130-400); Platelet Morphology Comment Appears Decreased; RBC Distribution Width 12.3 % (11.5-14.5); Red Blood Cell (RBC) Count 2.59 mill/uL (4.20-5.40)
[2019-04-19 04:01] LABS: Anion Gap 13 mmol/L (10-20); Carbon Dioxide 34 mmol/L (23-31); Chloride 94 mmol/L (98-107); Potassium 4.9 mmol/L (3.5-5.1); Sodium 136 mmol/L (136-145)
[2019-04-19] MEDS: metroNIDAZOLE 500 MG in Premix Bag 1 BAG IVPB SCH ×3 (04:06→20:08)
[2019-04-19] MEDS: Famotidine 20 MG TAB PO SCH ×3 (08:49→20:39)
[2019-04-19] MEDS: Saccharomyces boulardii 250 MG CAP PO SCH (08:49)
[2019-04-19] MEDS: Furosemide 20 MG/2 ML VIAL SLOW IVP SCH (09:05)
[2019-04-19] MEDS: Sodium Chloride 0.45% 1,000 ML IV SCH (09:05)
[2019-04-19] MEDS: Dexamethasone 4 mg/ml Vial SLOW IVP SCH ×2 (09:05→20:09)
--- NOTE | 2019-04-19 10:16 | PDOC.HOSPP ---
- Subjective Encounter Date: 04/19/19 Encounter Time: 07:35 Subjective: awakens to touch, is on bipap she had an hours break from bipap and was on high flow yesterday is seen moving all extre except right LE - Objective Vital Signs & Weight: Vital Signs (12 hours) Temp Pulse Resp Pulse Ox 04/19/19 08:00 92 L 04/19/19 07:40 97.3 F L 04/19/19 07:19 96 04/19/19 07:16 120 H 44 H 96 04/19/19 04:00 97.3 F L 04/19/19 01:27 108 H 94 L 04/19/19 01:25 96 04/18/19 23:31 97.1 F L Weight Weight 110 lb 3.2 oz Most Recent Monitor Data Heart Rate from ECG 103 NIBP 107/63 NIBP BP-Mean 77 Respiration from ECG 21 SpO2 90 I&O: 04/18/19 04/19/19 04/20/19 06:59 06:59 06:59 Intake Total 1720 1880 Output Total 1075 1450 Balance 645 430 Result Diagrams: 04/19/19 03:02 04/19/19 03:02 Hospitalist ROS - Medication Medications: Active Medications Generic Name Dose Route Start Last Admin Trade Name Freq PRN Reason Stop Dose Admin Acetaminophen 650 mg 04/12/19 22:48 04/15/19 18:23 Tylenol PO 650 mg Q4H PRN Administration Headache/Fever/Mild Pain (1-3) Albuterol/Ipratropium 3 ml 04/13/19 13:00 04/19/19 07:16 Duoneb NEB 3 ml [id number] DAGOBERTO Administration Dexamethasone 4 mg 04/17/19 21:00 04/19/19 09:05 Decadron SLOW IVP 4 mg BID DAGOBERTO Administration Famotidine 20 mg 04/13/19 09:00 04/19/19 08:49 Pepcid PO Not Given BID DAGOBERTO Furosemide 20 mg 04/19/19 09:00 04/19/19 09:05 Lasix SLOW IVP 20 mg DAILY DAGOBERTO Administration Levofloxacin 500 mg/ Device 100 mls @ 100 mls/hr 04/13/19 22:00 04/18/19 22: 28 IVPB 100 mls Q24HR DAGOBERTO Administration Metronidazole 500 mg/ Device 100 mls @ 100 mls/hr 04/16/19 20:00 04/19/19 04: 06 IVPB 100 mls 0400,1200,2000 DAGOBERTO Administration Sodium Chloride 1,000 mls @ 50 mls/hr 04/18/19 11:15 04/19/19 09:05 1/2 Normal Saline IV 1,000 mls .Q20H DAGOBERTO Administration Melatonin 6 mg 04/13/19 22:47 04/15/19 21:22 Melatonin PO 6 mg HSPRN PRN Administration Insomnia Menthol/Methyl Salicylate 120 gm 04/15/19 20:01 04/15/19 21:13 Muscle Rub Cream (Bengay) TOP 120 gm PRN PRN Administration Muscle Pain Nicotine 7 mg 04/14/19 21:00 04/18/19 20:44 Nicoderm Patch TD 7 mg Q24HR DAGOBERTO Administration Saccharomyces Boulardii 250 mg 04/13/19 09:00 04/19/19 08:49 Florastor PO Not Given DAILY DAGOBERTO Sodium Chloride 10 ml 04/12/19 22:48 04/15/19 21:14 Flush - Normal Saline IVF 10 ml PRN PRN Administration Saline Flush - Exam General Appearance: ill appearing Eye: PERRL, anicteric sclera ENT: no oropharyngeal lesions, dry oral mucosa Neck: supple, no JVD Heart: RRR, no murmur Respiratory: no wheezes, rales, rhonchi Gastrointestinal: soft, non-tender, non-distended, normal bowel sounds Extremities: no edema Extremities - other findings: right LE shortened and in ext rotation Neurological: cranial nerve grossly intact, no focal deficits Hosp A/P (1) small cell lung cancer with metastases Status: Acute (2) SIADH (syndrome of inappropriate ADH production) Status: Resolved (3) Right femoral fracture Code(s): S72.91XA - UNSP FRACTURE OF RIGHT FEMUR, INIT FOR CLOS FX Status: Acute Qualifiers: Encounter type: subsequent encounter Femur location: intertrochanteric Fracture type: closed Fracture alignment: displaced (4) multiple liver mets Status: Acute (5) Chronic anemia Code(s): D64.9 - ANEMIA, UNSPECIFIED Status: Chronic (6) Tobacco abuse Code(s): Z72.0 - TOBACCO USE Status: Chronic (7) Alcohol use disorder, mild, abuse Code(s): F10.10 - ALCOHOL ABUSE, UNCOMPLICATED Status: Chronic (8) FTT (failure to thrive) in adult Status: Acute - Plan off tolvaptan for siadh, sodium is normal. poor prognosis with multiple mets from small cell lung cancer to occipital lobe , parietal skull, multiple large liver mets, adrenal glands and abd lymph nodes as well. nebs, steroids low dose fentanyl tts for hip fracture and cancer d/w extensively, pt is DNAR, he is aware of poor prognosis (04/13/2019). Palliative care consultation. got 1 dose carboplatin 04/15/2019, etoposide and atezolizumab first cycle is completed 04/17/2019. suggest oral feeding between bipap breaks. has high hco3 but will need 1 to 2 doses of lasix, await pulm opinion.
--- NOTE | 2019-04-19 11:28 | PRG ---
DATE OF SERVICE: 04/19/2019 SUBJECTIVE: This morning, she is back on a BiPAP. She barely tolerated being off for more than an hour. Oncologist saw her. She has small-cell lung cancer with METS. She had apparently chemotherapy done. She is weak. OBJECTIVE: VITAL SIGNS: Temperature 97, pulse 120, , sats are 92%, and blood pressure 107/63. CHEST: Extensive rhonchi and crackles. CARDIAC: Sinus tach. ABDOMEN: Soft. LABORATORY DATA: Her creatinine is normal. Albumin is low at 2.7. White count 36,000. Last chest x-ray showed bilateral infiltrates. IMPRESSION: Small cell carcinoma, severe deconditioning, kyphosis, pneumonia, leukocytosis, and respiratory failure. PLAN: At this stage, continue supportive care. Neb treatments, Decadron. Prognosis remains guarded. We will follow. Job ID: [id number]
--- NOTE | 2019-04-19 12:31 | PRG ---
DATE OF SERVICE: 04/19/2019 SUBJECTIVE: This is a 68-year-old with metastatic small-cell cancer, seen in followup for hyponatremia management. No new problem. The patient is still BiPAP dependent. N.p.o. Otherwise, she reported no new problem. OBJECTIVE: VITAL SIGNS: Temperature 97.3, pulse 120, respiratory rate 21, SpO2 92% on BiPAP with 70% FiO2, blood pressure is 107/63. GENERAL: Chronically ill-looking female, in some respiratory distress. Afebrile. HEENT: Normocephalic and atraumatic. BiPAP mask is in place. CARDIOVASCULAR: Regular rhythm and rate, but tachycardic. RESPIRATORY: Decreased air entry both bases with scattered crackles and some transmitted breath sounds. Tachypnea noted. GI: Full, soft, nontender, nondistended with normal bowel sounds. EXTREMITIES: Right leg held in lateral rotation. Edema of upper limbs noted. TOOL INSPECTOR: Conscious, alert, oriented x3 at least. Conversational. DIAGNOSTIC DATA: CBC showed WBC count of 36, hemoglobin of 9.2, platelet of 113. Chemistry showed sodium 136, potassium 4.9, chloride 94, CO2 of 34, BUN 17, creatinine 0.41, glucose 119, uric acid 5.7, calcium 8.3, phosphorus 3.3. Total magnesium 2.2, total bilirubin 0.5, AST 20, ALT 17, alkaline phosphatase 71, total protein 4.5, albumin 2.7. ASSESSMENT: 1. Hyponatremia, seems to be multifactorial from syndrome of inappropriate antidiuretic hormone related to small cell lung cancer as well as poor solute intake. The patient received tolvaptan low dose x2 with appropriate increase. Sodium today is 136. The patient has been stable sodium cedeno in the last 2 to 3 days. 2. Acute respiratory failure. BiPAP dependent due to obstructive pneumonia related to the cancer. 3. Protein-calorie malnutrition. 4. Right hip fracture. 5. Hyperkalemia, resolved with Lasix. 6. Metastatic lung cancer: Treatment as per Oncology. PLAN: Agree with gentle IV fluid therapy since patient is n.p.o. Nutritional rehabilitation is recommended once it is possible. Nephrology will sign off at this time. Please call for any clarification or questions. There is no further need for tolvaptan at this time. It is also anticipated that with the treatment of small cell cancer with chemotherapy, sodium level will stabilize going forward. Job ID: [id number]
[2019-04-19] MEDS: Nicotine 7 MG PATCH TD SCH (20:11)
[2019-04-19] MEDS: Acetaminophen 325 MG TAB PO PRN (20:39)
[2019-04-19] MEDS: Melatonin 3 MG TAB PO PRN (20:39)
[2019-04-19] MEDS ORDERED: Ketorolac Tromethamine 30 MG/ML VIAL ONE (23:00)
[2019-04-20] MEDS ORDERED: Latanoprost 0.005% Ophth Soln 2.5 ml Bottle EA EYE SCH (01:15)
[2019-04-20] MEDS: Sodium Chloride 0.45% 1,000 ML IV SCH ×2 (03:05→14:58)
[2019-04-20] MEDS: metroNIDAZOLE 500 MG in Premix Bag 1 BAG IVPB SCH ×3 (03:59→19:43)
[2019-04-20 08:57] LABS: BUN (Urea Nitrogen) 20 mg/dL (9.8-20.1); Calc. Creatinine Clearance 106 mL/min (70-130); Calcium 8.3 mg/dL (7.8-10.44); Estimated GFR-MDRD Greater than 90; Glucose 110 mg/dL (80-115)
[2019-04-20 09:05] LABS: Anion Gap 14 mmol/L (10-20); Carbon Dioxide 35 mmol/L (23-31); Chloride 91 mmol/L (98-107); Potassium 4.9 mmol/L (3.5-5.1); Sodium 135 mmol/L (136-145)
[2019-04-20 09:26] LABS: Hemoglobin 10.2 g/dL (12.0-16.0); Mean Corpuscular HGB CONC 32.3 g/dL (32.0-36.0); Mean Corpuscular Hemoglobin 34.4 pg (27.0-31.0); Mean Platelet Volume 8.5 fL (7.4-10.4); Platelet Count 62 thou/uL (130-400); RBC Distribution Width 12.3 % (11.5-14.5); Red Blood Cell (RBC) Count 2.96 mill/uL (4.20-5.40)
[2019-04-20] MEDS: Famotidine 20 MG TAB PO SCH ×2 (09:47→20:35)
[2019-04-20] MEDS: Dexamethasone 4 mg/ml Vial SLOW IVP SCH ×2 (09:47→20:35)
[2019-04-20] MEDS: Saccharomyces boulardii 250 MG CAP PO SCH (09:47)
[2019-04-20] MEDS: Furosemide 20 MG/2 ML VIAL SLOW IVP SCH (09:47)
[2019-04-20 09:51] LABS: Band 3 % (5-11); MDiff Complete? YES; Monocytes 1 % (0-10); Neutrophil 96 % (42-75); Ovalocytes MODERATE= 6-15 cells (100X) (0-1/hpf); Platelet Morphology Comment Appears Decreased
--- NOTE | 2019-04-20 11:51 | PRG ---
DATE OF SERVICE: 04/20/2019 SUBJECTIVE: Genia Slater is a 68-year-old female, who is unable to get her off her BiPAP even for a brief period of time. Intake is very poor. OBJECTIVE: VITAL SIGNS: Temperature is normal. Pulse 107. Saturations are on a BiPAP 85, respirations 20. CHEST: Decreased breath sounds, rhonchi. CARDIAC: Normal S1, S2. No gallops. ABDOMEN: No masses. LABORATORY DATA: White count 30,000, H and H 10 and 31, platelet count is low at 62. Lytes are normal. BNP 456. ASSESSMENT: 1. Respiratory failure. 2. Congestive heart failure. 3. Chronic obstructive pulmonary disease. 4. Severe deconditioning. 5. Thrombocytopenia. 6. Small-cell lung cancer. PLAN: Not much to be done at this stage since she is not able to tolerate being off BiPAP for a brief period of time. Continue aggressive neb treatments, steroids, supportive care. She is a DNR. Prognosis is poor. Job ID: [id number]
[2019-04-20 11:59] LABS: ALT (SGPT) 17 U/L (8-55); AST (SGOT) 23 U/L (5-34); Albumin 2.9 g/dL (3.4-4.8); Alkaline Phosphatase 98 U/L (40-110); BUN (Urea Nitrogen) 20 mg/dL (9.8-20.1); Bilirubin, Total 0.6 mg/dL (0.2-1.2); Calc. Creatinine Clearance 98 mL/min (70-130); Calcium 8.2 mg/dL (7.8-10.44); Estimated GFR-MDRD Greater than 90; Globulin 1.7 g/dL (2.4-3.5); Glucose 109 mg/dL (80-115); Phosphorus 3.8 mg/dL (2.3-4.7); Protein, Total 4.6 g/dL (6.0-8.3)
--- NOTE | 2019-04-20 12:05 | PDOC.HOSPP ---
- Subjective Encounter Date: 04/20/19 Encounter Time: 11:00 Subjective: off bipap and is on high flow spo2 around 88% (has been on it for only 10min) responds to verbal stimuli - Objective Vital Signs & Weight: Vital Signs (12 hours) Temp Pulse Pulse Ox 04/20/19 11:36 97.2 F L 04/20/19 11:06 107 H 04/20/19 08:31 89 L 04/20/19 08:22 106 H 04/20/19 08:00 94 L 04/20/19 07:20 96.3 F L 04/20/19 03:41 97.0 F L Weight Weight 111 lb 4 oz Most Recent Monitor Data Heart Rate from ECG 108 NIBP 113/76 NIBP BP-Mean 88 Respiration from ECG 32 SpO2 93 I&O: 04/19/19 04/20/19 04/21/19 06:59 06:59 06:59 Intake Total 1880 1450 Output Total 1450 1400 Balance 430 50 Result Diagrams: 04/20/19 07:50 04/20/19 11:29 Hospitalist ROS - Medication Medications: Active Medications Generic Name Dose Route Start Last Admin Trade Name Freq PRN Reason Stop Dose Admin Acetaminophen 650 mg 04/12/19 22:48 04/19/19 20:39 Tylenol PO 650 mg Q4H PRN Administration Headache/Fever/Mild Pain (1-3) Albuterol/Ipratropium 3 ml 04/13/19 13:00 04/20/19 08:20 Duoneb NEB 3 ml [id number] DAGOBERTO Administration Dexamethasone 4 mg 04/17/19 21:00 04/20/19 09:47 Decadron SLOW IVP 4 mg BID DAGOBERTO Administration Famotidine 20 mg 04/13/19 09:00 04/20/19 09:47 Pepcid PO Not Given BID DAGOBERTO Furosemide 20 mg 04/19/19 09:00 04/20/19 09:47 Lasix SLOW IVP 20 mg DAILY DAGOBERTO Administration Levofloxacin 500 mg/ Device 100 mls @ 100 mls/hr 04/13/19 22:00 04/19/19 21: 34 IVPB 100 mls Q24HR DAGOBERTO Administration Metronidazole 500 mg/ Device 100 mls @ 100 mls/hr 04/16/19 20:00 04/20/19 03: 59 IVPB 100 mls 0400,1200,2000 DAGOBERTO Administration Sodium Chloride 1,000 mls @ 50 mls/hr 04/18/19 11:15 04/20/19 03:05 1/2 Normal Saline IV Not Given .Q20H DAGOBERTO Melatonin 6 mg 04/13/19 22:47 04/19/19 20:39 Melatonin PO 6 mg HSPRN PRN Administration Insomnia Menthol/Methyl Salicylate 120 gm 04/15/19 20:01 04/15/19 21:13 Muscle Rub Cream (Bengay) TOP 120 gm PRN PRN Administration Muscle Pain Nicotine 7 mg 04/14/19 21:00 04/19/19 20:11 Nicoderm Patch TD 7 mg Q24HR DAGOBERTO Administration Saccharomyces Boulardii 250 mg 04/13/19 09:00 04/20/19 09:47 Florastor PO Not Given DAILY DAGOBERTO Sodium Chloride 10 ml 04/12/19 22:48 04/15/19 21:14 Flush - Normal Saline IVF 10 ml PRN PRN Administration Saline Flush - Exam General Appearance: awake alert Eye: PERRL, anicteric sclera ENT: no oropharyngeal lesions, moist mucosa Neck: supple, no JVD Heart: RRR, no gallops Respiratory: no wheezes, no rales, rhonchi Gastrointestinal: soft, non-tender, non-distended, normal bowel sounds Extremities - other findings: right LE is externally rotated and shortened Neurological: cranial nerve grossly intact, no focal deficits Hosp A/P (1) small cell lung cancer with metastases Status: Acute (2) SIADH (syndrome of inappropriate ADH production) Status: Resolved (3) Right femoral fracture Code(s): S72.91XA - UNSP FRACTURE OF RIGHT FEMUR, INIT FOR CLOS FX Status: Acute Qualifiers: Encounter type: subsequent encounter Femur location: intertrochanteric Fracture type: closed Fracture alignment: displaced (4) multiple liver mets Status: Acute (5) Chronic anemia Code(s): D64.9 - ANEMIA, UNSPECIFIED Status: Chronic (6) Tobacco abuse Code(s): Z72.0 - TOBACCO USE Status: Chronic (7) Alcohol use disorder, mild, abuse Code(s): F10.10 - ALCOHOL ABUSE, UNCOMPLICATED Status: Chronic (8) FTT (failure to thrive) in adult Status: Acute - Plan off tolvaptan for siadh, sodium is normal. poor prognosis with multiple mets from small cell lung cancer to occipital lobe , parietal skull, multiple large liver mets, adrenal glands and abd lymph nodes as well. nebs, steroids, lasix, levaquin and flagyl low dose fentanyl tts for hip fracture and cancer d/w extensively, pt is DNAR, he is aware of poor prognosis (04/13/2019). Palliative care is following. got 1 dose carboplatin 04/15/2019, etoposide and atezolizumab first cycle is completed 04/17/2019. suggest oral feeding between bipap breaks or start PPN (day 8 of npo).
[2019-04-20 12:10] LABS: Anion Gap 18 mmol/L (10-20); Carbon Dioxide 33 mmol/L (23-31); Chloride 92 mmol/L (98-107); Potassium 4.8 mmol/L (3.5-5.1); Sodium 138 mmol/L (136-145)
[2019-04-20] MEDS: Acetaminophen 325 MG TAB PO PRN (19:42)
[2019-04-20] MEDS: Melatonin 3 MG TAB PO PRN (20:33)
[2019-04-20] MEDS: Nicotine 7 MG PATCH TD SCH (20:34)
[2019-04-20] MEDS: Latanoprost 0.005% Ophth Soln 2.5 ml Bottle EA EYE SCH (20:34)
[2019-04-21] MEDS: metroNIDAZOLE 500 MG in Premix Bag 1 BAG IVPB SCH ×3 (03:45→20:07)
[2019-04-21 04:19] LABS: Phosphorus 4.1 mg/dL (2.3-4.7)
[2019-04-21 04:20] LABS: Band 3 % (5-11); Hemoglobin 9.2 g/dL (12.0-16.0); Hypochromia SLIGHT = 6-15 cells (100X) (0-5/hpf); Lymphocytes 2 % (21-51); MDiff Complete? YES; Macrocytosis SLIGHT = 6-15 cells (100X) (0-5/hpf); Mean Corpuscular Hemoglobin 34.1 pg (27.0-31.0); Monocytes 1 % (0-10); Neutrophil 94 % (42-75); Platelet Count 39 thou/uL (130-400); Platelet Morphology Comment Appears Decreased; RBC Distribution Width 12.2 % (11.5-14.5); White Blood Cell (WBC) Count 10.7 thou/uL (4.8-10.8)
[2019-04-21 07:53] LABS: BUN (Urea Nitrogen) 16 mg/dL (9.8-20.1); Calc. Creatinine Clearance 106 mL/min (70-130); Calcium 8.2 mg/dL (7.8-10.44); Estimated GFR-MDRD Greater than 90; Glucose 128 mg/dL (80-115)
[2019-04-21 08:01] LABS: Carbon Dioxide 37 mmol/L (23-31); Chloride 91 mmol/L (98-107); Potassium 4.9 mmol/L (3.5-5.1); Sodium 136 mmol/L (136-145)
[2019-04-21] MEDS: Saccharomyces boulardii 250 MG CAP PO SCH (09:06)
[2019-04-21] MEDS: Famotidine 20 MG TAB PO SCH ×2 (09:06→20:06)
[2019-04-21] MEDS: Furosemide 20 MG/2 ML VIAL SLOW IVP SCH (09:07)
[2019-04-21] MEDS: Dexamethasone 4 mg/ml Vial SLOW IVP SCH (09:07)
--- NOTE | 2019-04-21 10:15 | RAD ---
EXAM: CHEST ONE VIEW HISTORY: Respiratory failure. Follow-up evaluation. COMPARISON: 04/18/2019 FINDINGS: The right paramediastinal and right suprahilar mass is again seen. Small right pleural effusion is id entified. Mild chronic lung changes are seen. Linear and minimal patchy density right midlung zone is seen. Cardiac silhouette and pulmonary vasculature are within normal limits. Osteopenia is present with remote fracture deformity involving the proximal left humerus. IMPRESSION: 1. Right paramediastinal and right suprahilar masslike density again present. 2. Small right pleural effusion and associated atelectasis. 3. Mild chronic lung changes with minimal linear and slight patchy densities right midlung zone which could be related to postobstructive pneumonitis or volume loss.
[2019-04-21] MEDS: Sodium Chloride 0.45% 1,000 ML IV SCH (13:28)
[2019-04-21] MEDS ORDERED: clonazePAM 0.5 MG TAB PO SCH (13:30)
--- NOTE | 2019-04-21 13:44 | PRG ---
DATE OF SERVICE: 04/21/2019 SERVICE: Pulmonary Medicine. INTERVAL HISTORY: The patient is doing great from respiratory standpoint. Breathing comfortably. No complaints of chest discomfort, fevers, or chills. Otherwise, there has been no interval change to her condition. Her white blood cell count has dramatically improved. Her oxygen requirements are slowly getting better. At this point, she has been weaned down to 55% FiO2 delivered via BiPAP. She is anxious. Whenever we give her break off the BiPAP, but she understands that it is time for us to continue making efforts at weaning her. OBJECTIVE: VITAL SIGNS: Afebrile, pulse 114, blood pressure 114/89, respirations 31, saturation 100%, currently on high-flow nasal cannula delivering 80% FiO2. HEENT: Normocephalic and atraumatic. Sclerae white. Conjunctivae pink. Oral mucosa is moist without lesions. LUNGS: Decent air entry. No prolonged expiratory phase or wheezing is appreciated. HEART: Normal rate. Regular. ABDOMEN: Soft, nontender, nondistended. Bowel sounds are positive. MUSCULOSKELETAL: No cyanosis or clubbing. There is no pitting in the bilateral lower extremities. NEUROLOGIC: Grossly nonfocal. LABORATORY DATA: WBC 10.7, hemoglobin 9.2, platelets 39,000 and significantly downtrending. INR 1.2. PH 7.37, pCO2 of 55, pO2 of 45, bicarb 37. Basic metabolic profile is otherwise unremarkable. Creatinine remains low, as is the BUN. Phosphorus is 4.1 and uric acid level was previously 5.7. Urinalysis is unremarkable. Blood cultures x2, influenza A and B, and urine culture are negative. IMAGING: Chest x-ray demonstrates mass-like density and has once again redemonstrated. Small right-sided pleural effusion with associated atelectasis is noted. Chronic lung changes are present. Postobstructive pneumonia cannot be excluded. ASSESSMENT: 1. Acute hypoxic respiratory failure. 2. Small-cell lung cancer, widely metastatic. 3. Syndrome of inappropriate antidiuretic hormone secretion. 4. Mechanical fall secondary to medical issues resulting in right-sided intertrochanteric hip fracture (pathologic fracture not excluded). DISCUSSION AND PLAN: Because of her anxiety, I will give her a very low dose of Klonopin. This will be scheduled twice daily, but will hold if she has high sedation. I will increase her IV fluid rates as she has approached euvolemia at this point. Pulmonary/Critical Care will continue to follow closely during the hospital stay. Job ID: [id number]
--- NOTE | 2019-04-21 14:49 | PDOC.MOPN ---
Interval History: tolerating high flow O2. Comfortable. On Klonopin - Vital Signs Vital Signs: Vital Signs (12 hours) Temp Pulse Resp Pulse Ox 04/21/19 13:05 100 04/21/19 13:04 114 H 36 H 100 04/21/19 11:18 96.8 F L 04/21/19 10:58 118 H 04/21/19 08:29 107 H 04/21/19 08:28 111 H 41 H 96 04/21/19 08:00 95 04/21/19 07:14 96.8 F L 04/21/19 04:00 97.8 F Weight Weight 111 lb Most Recent Monitor Data Heart Rate from ECG 110 NIBP 114/89 NIBP BP-Mean 97 Respiration from ECG 31 SpO2 97 - Physical Exam General: No acute distress HEENT: Atraumatic, PERRLA, EOMI, Mucous membr. moist/pink Lungs: Other (rhonchi) Cardiovascular: Other (tachy) Abdomen: Normal bowel sounds, Soft, No tenderness, No hepatospenomegaly, No masses Extremities: No clubbing, No cyanosis, No edema, Normal pulses, No tenderness/ swelling Skin: No rashes, No breakdown, No significant lesion Neurological: Normal speech - Labs Result Diagrams: 04/21/19 03:52 04/21/19 03:52 Lab results: Laboratory Results - last 24 hr 04/21/19 03:52: Phosphorus 4.1 04/21/19 03:52: WBC 10.7, RBC 2.70 L, Hgb 9.2 L, Hct 28.7 L, MCV 107.0 H, MCH 34.1 H, MCHC 32.0, RDW 12.2, Plt Count 39 L, MPV 10.0, Neutrophils % (Manual) 94 H, Band Neuts % (Manual) 3 L, Lymphocytes % (Manual) 2 L, Monocytes % (Manual ) 1, Hypochromia SLIGHT = 6-15 cells, Plt Morphology Comment Appears Decreased L , Macrocytosis SLIGHT = 6-15 cells 04/21/19 03:52: Sodium 136, Potassium 4.9, Chloride 91 L, Carbon Dioxide 37 H, Anion Gap TNP, BUN 16, Creatinine Less than 0.40 L, Estimated GFR (MDRD) Greater than 90, Glucose 128 H, Calcium 8.2 Status: lab reviewed by me A/P - Problem (1) Acute respiratory failure with hypoxia Current Visit: Yes Code(s): J96.01 - ACUTE RESPIRATORY FAILURE WITH HYPOXIA Status: Acute (2) small cell lung cancer with metastases Current Visit: Yes Status: Acute - Plan Plan: Ventilation improving More comfortable with Klonopin Encourage nutrition
--- NOTE | 2019-04-21 17:02 | PDOC.HOSPP ---
- Subjective Encounter Date: 04/21/19 Subjective: The patient remains BiPAP dependent. She is tachypneic and tachycardic. Unable to take the BiPAP enough to tolerate any meals. - Objective Vital Signs & Weight: Vital Signs (12 hours) Temp Pulse Resp Pulse Ox 04/21/19 15:32 97.0 F L 04/21/19 13:05 100 04/21/19 13:04 114 H 36 H 100 04/21/19 11:18 96.8 F L 04/21/19 10:58 118 H 04/21/19 08:29 107 H 04/21/19 08:28 111 H 41 H 96 04/21/19 08:00 95 04/21/19 07:14 96.8 F L Weight Weight 111 lb Most Recent Monitor Data Heart Rate from ECG 108 NIBP 127/83 NIBP BP-Mean 97 Respiration from ECG 31 SpO2 99 I&O: 04/20/19 04/21/19 04/22/19 06:59 06:59 06:59 Intake Total 1450 671 Output Total 1400 950 800 Balance 50 -279 -800 Result Diagrams: 04/21/19 03:52 04/21/19 03:52 Hospitalist ROS - Medication Medications: Active Medications Generic Name Dose Route Start Last Admin Trade Name Freq PRN Reason Stop Dose Admin Acetaminophen 650 mg 04/12/19 22:48 04/20/19 19:42 Tylenol PO 650 mg Q4H PRN Administration Headache/Fever/Mild Pain (1-3) Albuterol/Ipratropium 3 ml 04/13/19 13:00 04/21/19 13:04 Duoneb NEB 3 ml [id number] DAGOBERTO Administration Famotidine 20 mg 04/13/19 09:00 04/21/19 09:06 Pepcid PO 20 mg BID DAGOBERTO Administration Levofloxacin 500 mg/ Device 100 mls @ 100 mls/hr 04/13/19 22:00 04/20/19 21: 01 IVPB 100 mls Q24HR DAGOBERTO Administration Metronidazole 500 mg/ Device 100 mls @ 100 mls/hr 04/16/19 20:00 04/21/19 12: 12 IVPB 100 mls 0400,1200,2000 DAGOBERTO Administration Sodium Chloride 1,000 mls @ 75 mls/hr 04/21/19 13:20 04/21/19 13:28 1/2 Normal Saline IV 1,000 mls .[id number] DAGOBERTO Administration Latanoprost 1 drop 04/20/19 21:00 04/20/19 20:34 Xalatan 0.005% Ophth Soln EA EYE 1 drop HS DAGOBERTO Administration Melatonin 6 mg 04/13/19 22:47 04/20/19 20:33 Melatonin PO 6 mg HSPRN PRN Administration Insomnia Menthol/Methyl Salicylate 120 gm 04/15/19 20:01 04/15/19 21:13 Muscle Rub Cream (Bengay) TOP 120 gm PRN PRN Administration Muscle Pain Nicotine 7 mg 04/14/19 21:00 04/20/19 20:34 Nicoderm Patch TD 7 mg Q24HR DAGOBERTO Administration Saccharomyces Boulardii 250 mg 04/13/19 09:00 04/21/19 09:06 Florastor PO 250 mg DAILY DAGOBERTO Administration Sodium Chloride 10 ml 04/12/19 22:48 04/15/19 21:14 Flush - Normal Saline IVF 10 ml PRN PRN Administration Saline Flush - Exam General Appearance: awake alert Eye: PERRL ENT: normocephalic atraumatic Heart: RRR (Tachycardic), no murmur, no gallops Respiratory: no wheezes, tachypneic Gastrointestinal: soft, non-tender Neurological: no focal deficits Hosp A/P - Plan 1) small cell lung cancer with metastases Status: Acute (2) SIADH (syndrome of inappropriate ADH production) Status: Resolved (3) Right femoral fracture Code(s): S72.91XA - UNSP FRACTURE OF RIGHT FEMUR, INIT FOR CLOS FX Status: Acute Qualifiers: Encounter type: subsequent encounter Femur location: intertrochanteric Fracture type: closed Fracture alignment: displaced (4) multiple liver mets Status: Acute (5) Chronic anemia Code(s): D64.9 - ANEMIA, UNSPECIFIED Status: Chronic (6) Tobacco abuse Code(s): Z72.0 - TOBACCO USE Status: Chronic (7) Alcohol use disorder, mild, abuse Code(s): F10.10 - ALCOHOL ABUSE, UNCOMPLICATED Status: Chronic (8) FTT (failure to thrive) in adult Status: Acute - Plan 04/20: off tolvaptan for siadh, sodium is normal. poor prognosis with multiple mets from small cell lung cancer to occipital lobe , parietal skull, multiple large liver mets, adrenal glands and abd lymph nodes as well. nebs, steroids, lasix, levaquin and flagyl low dose fentanyl tts for hip fracture and cancer d/w extensively, pt is DNAR, he is aware of poor prognosis (04/13/2019). Palliative care is following. got 1 dose carboplatin 04/15/2019, etoposide and atezolizumab first cycle is completed 04/17/2019. suggest oral feeding between bipap breaks or start PPN (day 8 of npo). 04/21: The patient remains and a state of acute on chronic respiratory failure BiPAP dependent. Pulmonology critical care are managing her respiratory status issues. She remains on IV antibiotics for possible aspiration pneumonia. Lasix was held by pulmonology.
--- NOTE | 2019-04-21 17:28 | PRG ---
DATE OF SERVICE: 04/21/2019 Ms. Slater today is examined in her bed in the [facility]. Her daughter is at bedside. Since I last saw Ms. Slater, she has continued to have significant respiratory distress, although is not on a ventilator. The patient does have an intertrochanteric femur fracture, which has not been addressed surgically out of concern regarding her pulmonary status. Today, I had the pleasure of reviewing all these findings with the patient and her daughter. At this time, they still wish to not proceed with surgery out of concerns regarding her pulmonary status. They will continue to give surgical intervention consideration and review these options with the primary medical team as well. We did have a discussion that one possibility is to proceed with surgery under a spinal anesthetic, if it was felt that the rest of her systems were strong enough to undergo any type of surgical intervention. At this time, we will await any change in family's desire with respect to surgical intervention and just recommend continued pain management and minimizing movement of this right lower extremity. Job ID: [id number]
[2019-04-21] MEDS: Latanoprost 0.005% Ophth Soln 2.5 ml Bottle EA EYE SCH (20:06)
[2019-04-21] MEDS: clonazePAM 0.5 MG TAB PO SCH (20:06)
[2019-04-21] MEDS: Nicotine 7 MG PATCH TD SCH (20:06)
[2019-04-21] MEDS: Melatonin 3 MG TAB PO PRN (20:07)
[2019-04-22] MEDS: Sodium Chloride 0.45% 1,000 ML IV SCH (02:40)
[2019-04-22] MEDS: metroNIDAZOLE 500 MG in Premix Bag 1 BAG IVPB SCH (04:00)
--- NOTE | 2019-04-22 08:07 | PDOC.MOPN ---
Interval History: C1D8 of chemo: Sleeping comfortably. Awakes to sound and touch. Still c/o feeling SOB and anxious. Slept throughout the night w/o any pain or pther problems. Currently SpO2 at 100% on 80% FiO2 on BiPAP. - Vital Signs Vital Signs: Vital Signs (12 hours) Temp Pulse Resp Pulse Ox 04/22/19 07:56 106 H 04/22/19 07:45 105 H 24 H 99 04/22/19 04:00 97.2 F L 04/21/19 23:42 111 H 04/21/19 23:30 97.2 F L Weight Weight 110 lb 4.8 oz Most Recent Monitor Data Heart Rate from ECG 101 NIBP 92/61 NIBP BP-Mean 71 Respiration from ECG 20 SpO2 97 - Physical Exam General: Alert, Mild distress HEENT: EOMI, Other (on BiPAP) Lungs: Other (anterior breath sounds clear) Cardiovascular: Regular rate Abdomen: Soft, No tenderness - Labs Result Diagrams: 04/21/19 03:52 04/21/19 03:52 A/P - Problem (1) Metastatic cancer Current Visit: Yes Code(s): C79.9 - SECONDARY MALIGNANT NEOPLASM OF UNSPECIFIED SITE Status: Deleted (2) Right femoral fracture Current Visit: Yes Code(s): S72.91XA - UNSP FRACTURE OF RIGHT FEMUR, INIT FOR CLOS FX Status: Acute Qualifiers: Encounter type: subsequent encounter Femur location: intertrochanteric Fracture type: closed Fracture alignment: displaced (3) SIADH (syndrome of inappropriate ADH production) Current Visit: Yes Status: Resolved - Plan Plan: C1D8 of Carboplatin + VP16, Days 1-3, followed by Marlon on Day 4. Could not receive Tecentriq in the hospital so will hopefully add with C2 ~~ Daily CBC, CMP trend sodium, improved with Tolvaptan and chemo Monitor brain lesions for now given asymptomatic and systemic disease more of a risk at this time DVT PPx: Plts 39, need to avoid DVT prophylaxis until platelets > 50 - she is high risk with hip fracture and diffuse metastatic cancer
[2019-04-22 08:08] VITALS: TEMP 97
[2019-04-22] MEDS ORDERED: Dexamethasone 4 mg/ml Vial SLOW IVP SCH (09:00)
[2019-04-22] MEDS: clonazePAM 0.5 MG TAB PO SCH (09:32)
[2019-04-22] MEDS: Saccharomyces boulardii 250 MG CAP PO SCH (09:32)
[2019-04-22] MEDS: Famotidine 20 MG TAB PO SCH (09:32)
--- NOTE | 2019-04-22 10:26 | PRG ---
DATE OF SERVICE: 04/22/2019 SERVICE: Pulmonary Medicine. INTERVAL HISTORY: The patient is doing really well from respiratory standpoint. Breathing comfortably. No complaints of chest discomfort, nausea, or vomiting. She was able to get some sleep overnight with the help of Klonopin. It seems to wear off midway through the day. Otherwise, there has been no interval change to her condition. Her oxygen requirements seem to be improving a little bit. Yesterday, she was able to tolerate a 6-hour break from BiPAP on high-flow nasal cannula. PHYSICAL EXAMINATION: VITAL SIGNS: Afebrile, pulse 98, blood pressure 92/61, respirations 18, and saturation 99%, currently on BiPAP with 70% FiO2. GENERAL: The patient is awake and alert, in no apparent distress. LUNGS: Decent air entry. No prolonged expiratory phase or wheezing is appreciated. HEART: Normal rate. Regular. ABDOMEN: Soft, nontender, and nondistended. Bowel sounds are positive. MUSCULOSKELETAL: No cyanosis or clubbing. There is trace pitting at the left hip. NEUROLOGIC: Grossly nonfocal. ASSESSMENT: 1. Acute hypoxic respiratory failure. 2. Small cell lung cancer, widely metastatic. 3. Syndrome of inappropriate ADH secretion. 4. Mechanical fall resulting in right-sided intertrochanteric hip fracture (pathologic fracture not excluded). DISCUSSION AND PLAN: Her oxygen requirements are finally improving. We will continue giving her breaks off the BiPAP to high-flow nasal cannula three times daily and increase as tolerated. I will repeat some basic laboratories tomorrow morning. She will remain in the IMCU for the time being. Hopefully, we will be able to decrease her oxygen requirements significantly. Job ID: [id number]
[2019-04-22] MEDS: Acetaminophen 325 MG TAB PO PRN (10:34)
[2019-04-22] MEDS ORDERED: Lorazepam 2 MG/ML VIAL ONE (13:14)
[2019-04-22] MEDS ORDERED: Fentanyl 100 MCG/2 ML VIAL ONE (13:14)
[2019-04-22] MEDS: Fentanyl 100 MCG/2 ML VIAL SLOW IVP PRN ×2 (13:20→13:35)
[2019-04-22] MEDS: Lorazepam 2 MG/ML VIAL SLOW IVP PRN ×2 (13:25→13:39)
[2019-04-22 13:50] VITALS: BMI 21.5
[2019-04-22] MEDS ORDERED: clonazePAM 0.5 MG TAB PO SCH (14:00)
--- NOTE | 2019-04-23 15:23 | DIS ---
DATE OF ADMISSION: 04/12/2019 DATE OF DISCHARGE: 04/22/2019 HISTORY OF PRESENT ILLNESS AND HOSPITAL COURSE: The patient is a 68-year-old white female with past medical history of glaucoma and tobacco abuse, who presents to the hospital after a fall sustained at home. In the emergency department, a CT scan of the head demonstrated a possible metastatic process. Subsequent CT scans revealed a lung mass with metastasis to the liver and the brain. The patient was admitted to the hospital and her respiratory status subsequently deteriorated within 24 hours. The patient was placed on oxygen and subsequently escalated to Ventimask and eventually BiPAP. The patient was managed for pulmonary edema and possible aspiration pneumonia with antibiotics and diuretics, but despite that and despite our best efforts, the patient essentially succumbed to her illness and she on 04/22, at 1357. DISCHARGE DIAGNOSES: 1. Small cell lung cancer with metastasis. 2. Syndrome of inappropriate antidiuretic hormone secretion. 3. Right femur fracture. 4. Multiple liver metastasis. 5. Chronic anemia. 6. Tobacco abuse. 7. Failure to thrive. Job ID: [id number] [facility]
--- NOTE | 2019-04-24 09:25 | PQF ---
IRINA BOLTON JOSEPH [id number] [facility]- B12 [id number] CLINICAL DOCUMENTATION CLARIFICATION FORM: POST DISCHARGE Addendum to original discharge summary date: ____ Late entry note date: __ DATE: 04/24/2019 ATTN: CARLOS ENRIQUE COLLINS Please exercise your independent, professional judgment in responding to the clarification form. Clinical indicators are provided on the bottom of this form for your review Please check appropriate box(s) to clarify if the following diagnosis has been ruled in or ruled out: Sepsis [ x] Ruled in diagnosis [ x ] Continue to treat [ ] Resolved [ ] Ruled out diagnosis [ ] Cannot rule out diagnosis [ ] Other diagnosis [ ] Unable to determine For continuity of documentation, please document condition throughout progress notes and discharge summary. Thank You. CLINICAL INDICATORS - SIGNS / SYMPTOMS / LABS - Sepsis due to urinary tract infection- H&P, 04/12, Galen Canas MD - Temp:98.1, RR:22, Pulse:99- H&P, 04/12, Galen Canas MD - WBC: 16.3H on 04/14, 21.8H on 04/18, 36.0H on 04/19- Laboratory report RISK FACTORS - Acute hypoxic respiratory failure- Progress note, 04/22, CARLOS ENRIQUE COLLINS - Small cell lung cancer- Progress note, 04/22, CARLOS ENRIQUE COLLINS TREATMENTS - Empiric antibiotics - H&P, 04/12, Galen Canas MD - Levofloxacin.IV- MAR, 04/12 (This form is maintained as a part of the permanent medical record) 2014 [employer] All Rights Reserved [email or web address]
--- NOTE | 2019-05-01 15:33 | EKG ---
Test Reason : TACHY Blood Pressure : / mmHG Vent. Rate : 094 BPM Atrial Rate : 094 BPM P-R Int : 140 ms QRS Dur : 070 ms QT Int : 398 ms P-R-T Axes : 055 040 052 degrees QTc Int : 497 ms Normal sinus rhythm Possible Left atrial enlargement Prolonged QT Abnormal ECG Confirmed by COLEMAN MARTINEZ, MYLES (12), medical editor TIFF GIBSON ([id number]) on 05/01/2019 3:33:20 PM Referred By: Confirmed By:MYLES CEE MD
--- NOTE | 2019-05-20 23:01 | PQF ---
IRINA BOLTON MOEZ [id number] [place] [address] [id number] CLINICAL DOCUMENTATION CLARIFICATION FORM: POST DISCHARGE Addendum to original discharge summary date: ____ Late entry note date: __ DATE:05/20/2019 ATTN: BRAYDON PELAEZ Please exercise your independent, professional judgment in responding to the clarification form. Clinical indicators are provided on the bottom of this form for your review Please check appropriate box(s): HEART FAILURE: A. TYPE: [ >] Systolic / HFrEF [ ] Diastolic / HFpEF [ ] Combined Systolic / Diastolic B. ACUITY [ ] Acute [> ] Acute on Chronic [ ] Chronic [ ] Other diagnosis [ ] Unable to determine For continuity of documentation, please document condition throughout progress notes and discharge summary. Thank You. CLINICAL INDICATORS - SIGNS / SYMPTOMS / LABS - Congestive heart failure- Progress note, 04/20, Katharine Vargas MD - BNP: 456.4H- Laboratory report, 04/20 - Possible left atrial enlargement-Electrocardiogram, 04/12 - Prolonged QT-Electrocardiogram, 04/12 - Chronic bilateral loge edema- Progress note, 04/14, Amando Kaur MD RISKS: - Acute on chronic respiratory failure- Progress note, 04/14, Amando Kaur MD TREATMENTS: - Furosemide.IV- MAR, 05/10 - Electrocardiogram, 04/12 (This form is maintained as a part of the permanent medical record) 2014 [employer] All Rights Reserved [email or web address]
--- NOTE | 2019-05-20 23:18 | PQF ---
IRINA BOLTON MOEZ [id number] [facility]- B12 [id number] CLINICAL DOCUMENTATION CLARIFICATION FORM: POST DISCHARGE Addendum to original discharge summary date: ____ Late entry note date: __ Date: 05/20/2019 ATTN: BRAYDON PELAEZ Please exercise your independent, professional judgment in responding to the clarification form. Clinical indicators are provided on the bottom of this form for your review Please check appropriate box(s): [ ] Protein Calorie Malnutrition: [ ] Mild [ >] Moderate [ ] Severe [ > ] Protein Calorie Malnutrition unspecified [ ] Other diagnosis [ ] Unable to determine CLINICAL INDICATORS - SIGNS / SYMPTOMS / LABS - Protein Calorie Malnutrition- Progress note, 04/19, Amando Kaur MD - BMI 21.5 - FNS assessment 04/22 - FTT in adult, status: acute- Hospital PN, 04/21, BRAYDON PELAEZ - Albumin: 2.9L- FNS assessment - Total protein: 5.6L on 04/12, 4.5L on 04/19- Laboratory RISK FACTORS - Small cell lung cancer with metastasis- Hospital PN, 04/21LATANYA MOEZ - Alcohol use disorder, mild abuse- Hospital PN, 04/21LATANYA MOEZ TREATMENT: - Ensure Enlive TID- FNS assessment 04/22 - Albumin.IV- 04/12 Moderate Malnutrition (in acute illness) Energy Intake: <75% of estimated energy requirement for > 7 days Weight Loss: 1-2%/1 week; 5%/ 1 month; 7.5%/3 months Other: mild body fat loss; mild muscle mass loss; mild fluid accumulation; Severe Malnutrition (in acute illness) Energy Intake: < 50% of estimated energy requirement for > 5 days Weight Loss: >1-2%/1 week; >5%/1 month; >7.5%/3 months Other: moderate body fat loss; moderate muscle mass loss; moderate- severe fluid accumulation; 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 Moderate Malnutrition (in chronic illness) Energy Intake: <75% of estimated energy requirement for >1 month [employer] Rep Crystal Reports Winform ViewerWeight Loss: 5%/1 month; 7.5 %/3 months; 10%/6 months; 20%/1 year Other: mild body fat loss; mild muscle mass loss; mild fluid accumulation Severe Malnutrition (in chronic illness) Energy Intake: <75% of estimated energy requirement for >1 month Weight Loss: >5%/1 month; >7.5%/3 months; >10%/6 months; >20%/1 year Other: severe body fat loss; severe muscle mass loss; severe fluid accumulation ; 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 All Rights Reserved Sunshine [email or web address]
== END 2019-04-22 13:57 | disposition expired | DRG 871 ==
LOC: ERS 18:01 → IMCU/EMU 20:51
PROVIDERS: ADMIT Emergency Medicine; ATTEND Internal Medicine
PROC: 5A09557 Assistance with Respiratory Ventilation, Greater than 96 Consecutive Hours, Continuous Positive Airway Pressure (ICD-10-PCS; 2019-04-12)
PROC: 0HC0XZZ Extirpation of Matter from Scalp Skin, External Approach (ICD-10-PCS; principal; 2019-04-14)
PROC: 3E03305 Introduction of Other Antineoplastic into Peripheral Vein, Percutaneous Approach (ICD-10-PCS; 2019-04-15)
DX: A41.9 Sepsis, unspecified organism (principal); S72.141A Displaced intertrochanteric fracture of right femur, initial encounter for closed fracture; J96.21 Acute and chronic respiratory failure with hypoxia; J69.0 Pneumonitis due to inhalation of food and vomit; E88.3 Tumor lysis syndrome; I50.23 Acute on chronic systolic (congestive) heart failure; C79.31 Secondary malignant neoplasm of brain; C34.11 Malignant neoplasm of upper lobe, right bronchus or lung; E22.2 Syndrome of inappropriate secretion of antidiuretic hormone; C78.7 Secondary malignant neoplasm of liver and intrahepatic bile duct; N39.0 Urinary tract infection, site not specified; C79.70 Secondary malignant neoplasm of unspecified adrenal gland; J44.1 Chronic obstructive pulmonary disease with (acute) exacerbation; E46 Unspecified protein-calorie malnutrition; Z66 Do not resuscitate; Z51.5 Encounter for palliative care; E87.6 Hypokalemia; D63.8 Anemia in other chronic diseases classified elsewhere; F41.9 Anxiety disorder, unspecified; H40.9 Unspecified glaucoma; M40.209 Unspecified kyphosis, site unspecified; R62.7 Adult failure to thrive; D69.6 Thrombocytopenia, unspecified; R29.6 Repeated falls; R59.1 Generalized enlarged lymph nodes; F10.10 Alcohol abuse, uncomplicated; D75.89 Other specified diseases of blood and blood-forming organs; E87.5 Hyperkalemia; Z88.8 Allergy status to other drugs, medicaments and biological substances; Z88.0 Allergy status to penicillin; Z90.710 Acquired absence of both cervix and uterus; Z68.21 Body mass index [BMI] 21.0-21.9, adult
CPT/HCPCS: 36415; 51702; 70450; 71045; 71275; 72170; 72191; 74175; 80048; 80053; 80069; 81003; 81015; 82533; 82550; 82607; 82746; 82805; 83605; 83690; 83735; 83880; 83930; 83935; 84100; 84443; 84484; 84550; 85025; 85379; 85610; 85730; 86850; 86900; 86901; 87040; 87086; 87804; 88172; 88173; 88177; 88305; 88341; 88342; 88360; 93005; 93970; 94640; 94660; 96361; 96365; 96375; 96376; J1100; J1200; J1885; J1940; J1956; J2060; J2270; J2405; J2469; J2920; J3010; J3475; J3480; J7050; J7131; J7620; J9045; J9181; P9047; Q0163; Q5108; Q9967